=== PATIENT | female | born 1945 | race Caucasian/White ===

== ENCOUNTER → 2016-06-16 09:31 | Outpatient (CLI) | payer MEDICARE, OTHER ==
[2010-12-24 18:14] VITALS: BMI 31.3
== END | disposition home or self-care (01) ==
LOC: D.NM 09:31
DX: R93.8 Abnormal findings on diagnostic imaging of other specified body structures (principal)

== ENCOUNTER → 2016-06-18 12:11 | Outpatient (CLI) | payer MEDICARE, OTHER ==
[2010-12-24 18:14] VITALS: BMI 31.3
== END | disposition home or self-care (01) ==
LOC: D.US 12:11
DX: R93.8 Abnormal findings on diagnostic imaging of other specified body structures (principal)

== ENCOUNTER 2017-02-04 16:08 | Inpatient (IN) | payer MEDICARE, OTHER ==
[~2017-02-04] VITALS: Ht 157.5 cm; Wt 63.3 kg
--- NOTE | 2017-02-04 16:25 | NUR ---
RECEIVED PT TO ROOM 2131 VIA WHEELCHAIR, ACCOMPANIED BY SPOUSE. ORIENTED PT TO ROOM AND CALL LIGHT,WILL ASSESS PT AND START PLAN OF CARE.
[2017-02-04] MEDS ORDERED: SYNTHROID112 MCG PO (16:53)
[2017-02-04] MEDS ORDERED: XALATAN 0.0052.5 ML EACH EYE (16:53)
[2017-02-04] MEDS ORDERED: PROTONIX40 MG PO (16:54)
[2017-02-04] MEDS ORDERED: ULTRAM50 MG PO (16:54)
[2017-02-04] MEDS ORDERED: CYMBALTA30 MG PO (16:54)
[2017-02-04] MEDS ORDERED: CADUET 10 MG/801 TAB PO (16:55)
[2017-02-04] MEDS ORDERED: FOLIC ACID1 MG PO (16:57)
[2017-02-04] MEDS ORDERED: CLARITIN 10 MG10 MG PO (16:58)
[2017-02-04] MEDS ORDERED: ALIGN4 MG PO (16:58)
[2017-02-04] MEDS ORDERED: MULTIPLE VITAMI1 TA1 PO (16:58)
[2017-02-04] MEDS ORDERED: ASCORBIC ACID500 MG PO (16:58)
[2017-02-04] MEDS ORDERED: VITAMIN B-121000 MCG PO (16:59)
--- NOTE | 2017-02-04 17:00 | NUR ---
RATIONAL FOR SCD'S EXPLAINED TO PT. PT REFUSED TO WEAR SCD'S AT THIS TIME, WILL LEAVE IN ROOM TO SEE IF SHE WOULD LIKE TO WEAR THEM TONIGHT.
[2017-02-04 17:36] LABS: BASOPHILS 0.1 % (0-2); EOSINOPHILS 0.2 % (0-7); HEMATOCRIT 37.3 % (36.0-48.0); HEMOGLOBIN 12.6 g/dL (12-16); IMMATURE GRANULOCYTES 0.2 % (0-5); LYMPHOCYTES 7.5 % (15-50); MCHC 33.8 g/dL (31.0-37.0); MCV 85.9 fL (80.0-100.0); MEAN PLATELET VOLUME 9.4 fL (7.4-10.4); MONOCYTES 7.1 % (2-11); NEUTROPHILS 84.9 % (40-80); RBC 4.34 10x6/uL (4.00-5.40); RDW 14.4 % (11.5-14.5); WBC 14.7 10x3/uL (4.8-10.8)
[2017-02-04 17:42] LABS: PLATELET COUNT 572 10x3/uL (130-400)
[2017-02-04 17:50] VITALS: BP 131/84
[2017-02-04 17:56] LABS: ALBUMIN 2.8 g/dL (3.4-5.0); ANION GAP 11.4 mmol/L (8-16); BILIRUBIN - TOTAL 0.3 mg/dL (0.2-1.3); CALCIUM 10.7 mg/dL (8.5-10.1); CARBON DIOXIDE 29.1 mmol/L (21.0-32.0); POTASSIUM - SERUM 4.5 mmol/L (3.5-5.1); PROTEIN - SERUM 6.3 g/dL (6.4-8.2)
--- NOTE | 2017-02-04 20:42 | NUR ---
PT TAKEN TO CT SCAN
--- NOTE | 2017-02-04 20:43 | NUR ---
PT'S STATED THAT HE BROUGHT HIS WIFES EYE GTTS FOR CATARACTS AND ASKED IF HE COULD ADMINISTER THEM BEFORE HE LEAVES. I DID GIVE HIM THE AUTHORIZATION TO DO SO. HE STATES PT HAS BEEN N/V X 4 WEEKS, HAS DIFFICULTY SWALLOWING, AND HAS BECOME VERY DEHYDRATED. WILL CONTINUE TO MONTITOR PT CLOSELY AND FREQUENTLY.
[2017-02-04 21:22] LABS: APPEARANCE CLEAR (CLEAR); BILIRUBIN NEGATIVE (NEGATIVE); COLOR YELLOW (YELLOW); GLUCOSE NEGATIVE (NEGATIVE); KETONE SMALL mg/dL (NEGATIVE); NITRITE NEGATIVE (NEGATIVE); PROTEIN NEGATIVE (NEGATIVE); SPECIFIC GRAVITY 1.015 (1.005-1.020); UROBILINOGEN NORMAL (NORMAL)
[2017-02-04 21:56] VITALS: BP 145/77
--- NOTE | 2017-02-05 02:02 | NUR ---
PT HAS BEEN RESTING COMFORTABLY SINCE START OF SHIFT, EASILY ROUSABLE TO VERBAL STIMULI, DENIES ANY NEEDS. WILL CONTINUE TO MONITOR CLOSELY.
[2017-02-05 06:09] VITALS: BP 133/71
--- NOTE | 2017-02-05 06:41 | NUR ---
PT LYING IN BED, AWAKE, ALERT, C/O NAUSEA AND STATES SHE IS RELUCTANT ABOUT HAVING THE EGD THIS MORNING R/T HER NAUSEA. PRN ZOFRAN GIVEN EVEN THOUGH PT STATES IT HAS NOT HELPED HER BEFORE. NO OTHER NEEDS AT THIS TIME. CONTINUE TO MONITOR CLOSELY.
[2017-02-05 06:45] LABS: BASOPHILS 0.1 % (0-2); EOSINOPHILS 1.5 % (0-7); HEMATOCRIT 36.8 % (36.0-48.0); HEMOGLOBIN 12.3 g/dL (12-16); IMMATURE GRANULOCYTES 0.1 % (0-5); LYMPHOCYTES 8.8 % (15-50); MCH 28.8 pg (26.0-34.0); MCHC 33.4 g/dL (31.0-37.0); MCV 86.2 fL (80.0-100.0); MEAN PLATELET VOLUME 9.6 fL (7.4-10.4); MONOCYTES 7.6 % (2-11); NEUTROPHILS 81.9 % (40-80); PLATELET COUNT 536 10x3/uL (130-400); RBC 4.27 10x6/uL (4.00-5.40); RDW 14.6 % (11.5-14.5); WBC 13.6 10x3/uL (4.8-10.8)
[2017-02-05 07:12] LABS: ALBUMIN 2.5 g/dL (3.4-5.0); ANION GAP 9.7 mmol/L (8-16); BILIRUBIN - TOTAL 0.4 mg/dL (0.2-1.3); CALCIUM 10.3 mg/dL (8.5-10.1); CARBON DIOXIDE 29.2 mmol/L (21.0-32.0); CREATININE - SERUM 0.9 mg/dL (0.6-1.3); POTASSIUM - SERUM 3.9 mmol/L (3.5-5.1); PROTEIN - SERUM 6.2 g/dL (6.4-8.2)
--- NOTE | 2017-02-05 07:16 | NUR ---
PT IN BED, LOOKES ANXIOUS AND TEARY EYE, STATES THAT SHE IS VERY NAUSEATED AND DOES NOT WANT TO HAVE THE EGD DONE. DOES NOT WANT TO SIGN CONSENTS, UNTIL SEE SPEAKS WITH DR. FRANKEL. WILL CALL DR. FRANKEL AND INFORM HER THAT PT WANTS TO TALK TO HER FIRST. PT DENIES ANY OTHER NEEDS AT THIS TIME, RESP EVEN AND UNLABORED, RT FA INFUSING NS AT 125. CALL LIGHT INR EACH, NAD NOTED, WILL CONTINUE PLAN OF CARE.
--- NOTE | 2017-02-05 08:02 | NUR ---
CALLED THE GI LAB AND NOTIFIED THEM THAT PT IS REFUSING TO SIGN CONSENTS FOR EGD TODAY. WANTS DR. FRANKEL TO COME AND TALK TO HER FIRST.
[2017-02-05 08:43] VITALS: BP 161/71
[2017-02-05 11:14] LABS: INR 1.05 (0.85-1.17); PROTIME 13.3 SECONDS (11.6-15.0)
--- NOTE | 2017-02-05 11:48 | NUR ---
PT TRANSFERED TO RADIOLOGY, VIA BED, NAD NOTED.
--- NOTE | 2017-02-05 12:30 | NUR ---
PT TRANSFERED BACK TO ROOM 2131 VIA BED, VITAL SIGNS STABLE, DRESSING NOTED TO RT UPPER BACK. PT DENIES ANY NEEDS AT THIS TIME. CALL LIGHT IN REACH, NAD NOTED, WILL CONTINUE TO MONITOR.
[2017-02-05 13:10] VITALS: BMI 23.9
[2017-02-05 13:31] LABS: PROTEIN - BODY FLUID 3.8 G/DL
[2017-02-05 14:44] LABS: MACROPHAGES BF 5 %; MESOTHELIALS BF 1 %; NEUT - BF 24 %
--- NOTE | 2017-02-05 16:13 | NUR ---
NORCO 5MG GIVEN FOR PAIN LEVEL OF 5/10. PT DENIES ANY OTHER NEEDS AT THIS TIME. CALL LIGHT IN REACH, PARTNER AT BEDSIDE, NAD NOTED, WILL CONTINUE PLAN OF CARE.
[2017-02-05 17:17] VITALS: BP 147/75
--- NOTE | 2017-02-05 18:46 | NUR ---
PT'S IV INFILTRATED, NEW 22G STARTED TO RT FA X2 STICKS. PT TOLERATED PROCEDURE WELL. IVPB FLAGYL STARTED BACK UP, PT DENIES ANY NEEDS AT THIS TIME. FAMILY AT BEDSIDE, CALL LIGHT IN REACH, NAD NOTED.
--- NOTE | 2017-02-05 19:15 | NUR ---
ROOSEVELT NOTE: PT IS A,A,OX3, PT IS VERY ANXIOUS AND NERVOUS. SHE UNDERWENT A RIGHT THORACENTESIS TODAY AND HAD 1700CC OF FLUID REMOVED. SHE IS HAVING SIGNIFICANT PAIN AT HER THORACENTESIS SITE AND IS REQUESTING PAIN MEDS, BUT HER NORCO IS NOT DUE YET; HOWEVER, SHE COULD HAVE HER TRAMADOL, SO THAT WILL BE GIVEN PER REQUEST. SHE IS CONCERNED ABOUT BEING TOO DIZZY TO WALK TO THE BATHROOM, I ENCOURAGED HER TO MAKE SURE SHE USES HER CALL UREÑA TO ASK FOR ASSIST TO GET UP TO THE BATHROOM. PT DENIES ANY RESPIRATORY COMPLAINTS AT THIS TIME. RIGHT FOREARM IV ACCESS W/ D5 1/2NS @ 75CC/HR. DRESSING TO RIGHT BACK, 4X4 W/ TEGADERM C/D/I (THORACENTESIS SITE). WILL CONT TO MONITOR.
[2017-02-05 22:00] VITALS: BP 125/58
[2017-02-06 00:36] VITALS: BP 126/74
[2017-02-06 05:11] VITALS: BP 114/79
--- NOTE | 2017-02-06 05:35 | NUR ---
PT HAS SLEPT THROUGH MOST OF THE NIGHT. SHE HAS BEEN MEDICATED FOR PAIN PER REQUEST, PER MD ORDERS, WITH GOOD RELIEF. PT HAS NOT HAD A BOWEL MOVEMENT, SO COULD NOT COLLECT A STOOL SPECIMEN FOR A CDIFF CULTURE. PT STATES THAT SHE HAS BEEN CONSTIPATED FOR 1 WEEK. SHE DENIES ANY DIARRHEA. PT HAS QUESTIONS ABOUT MRI OF BRAIN AND BONESCAN. SHE WANTS TO BE D/C'D TODAY. I EXPLAINED THAT IT WOUDL BE BETTER TO HAVE THE TESTING ORDERED BY THE MD FOR HER WORK-UP PRIOR TO D/C SO SHE COULD HAVE MORE ANSWERS AND A MORE DEFINITIVE DIAGNOSIS. AFTER TALKING AND FURTHER REASSURANCE, PT AGREES. PT IS STABLE, RESTING COMFORTABLY, DENIES ANY CURRENT COMPLAINTS. WILL CONT TO MONITOR.
--- NOTE | 2017-02-06 05:40 | NUR ---
PT STATES THAT SHE GETS BETTER PAIN RELIEF FROM THE TRAMADOL THAN THE NORCO. THE NORCO JUST GIVES HER A HEADACHE.
[2017-02-06 07:02] LABS: BASOPHILS 0.3 % (0-2); EOSINOPHILS 2.4 % (0-7); HEMATOCRIT 34.4 % (36.0-48.0); HEMOGLOBIN 11.3 g/dL (12-16); IMMATURE GRANULOCYTES 0.2 % (0-5); LYMPHOCYTES 8.5 % (15-50); MCH 28.3 pg (26.0-34.0); MCHC 32.8 g/dL (31.0-37.0); MEAN PLATELET VOLUME 9.3 fL (7.4-10.4); NEUTROPHILS 79.6 % (40-80); PLATELET COUNT 436 10x3/uL (130-400); RDW 14.4 % (11.5-14.5); WBC 10.5 10x3/uL (4.8-10.8)
[2017-02-06 07:16] LABS: ANION GAP 10.8 mmol/L (8-16); CALCIUM 9.7 mg/dL (8.5-10.1); CARBON DIOXIDE 26.1 mmol/L (21.0-32.0); CREATININE - SERUM 0.9 mg/dL (0.6-1.3); POTASSIUM - SERUM 3.9 mmol/L (3.5-5.1)
--- NOTE | 2017-02-06 07:35 | NUR ---
ASSESSMENT COMPLETED. ALERT AND ORIENTED. NO TELEMERTY OR O2. RESERVE RIGHT ARM. DRSG TO BACK CLEAN AND DRY. IV TO RIGHT FOREARM WITH D5I/2 NS AT 75. NO NEEDS VOICED. CALL LIGHT IN REACH WITH SR UP. WILL MONITOR
[2017-02-06 09:19] VITALS: BP 132/79
--- NOTE | 2017-02-06 11:50 | NUR ---
CALL PLACED TO JESICA CALI. PT C/O NOT GETTING HER CYMBALTA.
[2017-02-06 12:08] VITALS: BP 127/71
[2017-02-06 15:39] VITALS: Ht 157.5 cm; Wt 63.3 kg
[2017-02-06 17:07] VITALS: BP 123/68
--- NOTE | 2017-02-06 18:30 | NUR ---
BACK FROM CT. DENIES ANY NEEDS. IV RESTARTED. WILL MONITOR
[2017-02-06 19:08] LABS: AFB SPECIMEN PROCESSING Not Indicated (())
[2017-02-06 21:08] VITALS: BP 125/65
[2017-02-07 01:27] VITALS: BP 107/63
[2017-02-07 06:24] LABS: BASOPHILS 0.1 % (0-2); EOSINOPHILS 1.9 % (0-7); HEMATOCRIT 33.9 % (36.0-48.0); HEMOGLOBIN 11.1 g/dL (12-16); IMMATURE GRANULOCYTES 0.1 % (0-5); LYMPHOCYTES 8.5 % (15-50); MCH 28.2 pg (26.0-34.0); MCHC 32.7 g/dL (31.0-37.0); MEAN PLATELET VOLUME 9.3 fL (7.4-10.4); MONOCYTES 9.2 % (2-11); NEUTROPHILS 80.2 % (40-80); PLATELET COUNT 390 10x3/uL (130-400); RBC 3.94 10x6/uL (4.00-5.40); RDW 14.5 % (11.5-14.5); WBC 9.6 10x3/uL (4.8-10.8)
[2017-02-07 06:51] VITALS: BP 106/42
[2017-02-07 07:08] LABS: ALBUMIN 2.1 g/dL (3.4-5.0); ANION GAP 11.7 mmol/L (8-16); BILIRUBIN - TOTAL 0.3 mg/dL (0.2-1.3); CALCIUM 9.7 mg/dL (8.5-10.1); CARBON DIOXIDE 27.1 mmol/L (21.0-32.0); CREATININE - SERUM 0.9 mg/dL (0.6-1.3); POTASSIUM - SERUM 3.8 mmol/L (3.5-5.1); PROTEIN - SERUM 5.3 g/dL (6.4-8.2)
--- NOTE | 2017-02-07 07:37 | NUR ---
PT IN BED RESTING WITH EYES CLOSED. NO DISTRESS NOTED. WILL MONITOR.
[2017-02-07 08:24] VITALS: BP 106/74
--- NOTE | 2017-02-07 10:15 | NUR ---
IV INFILTARTED ON LEFT ARM WAS LEAKING. REMOVED IV WITH CATH INTACT. RESARTED TO LEFT UPPER ARM X 1 ATTEMPT WITH 22GA. CONT IV FLUIDS. PT UP TO BATHROOM FOR POSSIBLE BM.
[2017-02-07 17:02] VITALS: BP 106/62
--- NOTE | 2017-02-07 19:45 | NUR ---
INITIAL ROUNDS, PT TEARFUL. UPSET THAT SHE CANNOT DIAL OUT ON THE PHONE. ASSISTED PT TO CALL ON THE PHONE. ENCOURAGED TO VERBAIZED HER FEELINGS/NEEDS. SHE IS UNDER ALOT OF STRESS WITH THE POSSIBLE PENDING DIAGNOSIS OF LUNG CANCER. SHE SAYS SHE ONLY HAS A SISTER. NO OR CHILDREN. VERY DESPONDENT. GAVE POSITIVE FEEDBACK AND ENCOURAGED PT TO LET ALL THE MDS DEVELOP A PLAN OF CARE. IVF D5.45NS @ 75ML/HR INFUSING. LEFT ARM RESERVEDD. NO O2 OR TELEMETRY IN PLACE. CPOC. PROVIDE EMOTIONAL SUPPORT.
[2017-02-07 21:07] VITALS: BP 108/57
--- NOTE | 2017-02-07 21:10 | NUR ---
DR RESENDEZ ROUNDING ON PATIENT.
[2017-02-08 00:58] VITALS: BP 119/64
[2017-02-08 05:19] VITALS: BP 109/70
[2017-02-08 05:43] LABS: BASOPHILS 0.2 % (0-2); EOSINOPHILS 1.8 % (0-7); HEMATOCRIT 32.8 % (36.0-48.0); HEMOGLOBIN 10.9 g/dL (12-16); IMMATURE GRANULOCYTES 0.2 % (0-5); LYMPHOCYTES 3.8 % (15-50); MCH 28.4 pg (26.0-34.0); MCHC 33.2 g/dL (31.0-37.0); MCV 85.4 fL (80.0-100.0); MEAN PLATELET VOLUME 9.7 fL (7.4-10.4); PLATELET COUNT 425 10x3/uL (130-400); RBC 3.84 10x6/uL (4.00-5.40); RDW 14.4 % (11.5-14.5); WBC 10.3 10x3/uL (4.8-10.8)
[2017-02-08 06:32] LABS: ALBUMIN 2.2 g/dL (3.4-5.0); ANION GAP 14.9 mmol/L (8-16); BILIRUBIN - TOTAL 0.3 mg/dL (0.2-1.3); CALCIUM 10.1 mg/dL (8.5-10.1); CARBON DIOXIDE 22.7 mmol/L (21.0-32.0); POTASSIUM - SERUM 3.6 mmol/L (3.5-5.1); PROTEIN - SERUM 5.6 g/dL (6.4-8.2)
--- NOTE | 2017-02-08 07:37 | NUR ---
PATIENT IS IN BED RESTING AT THIS TIME. PATIENT STATES PAIN LEVEL IS A 4 ON A SCALE OF 0-10 HOWEVER STATES "I DO NOT WANT PAIN MEDICINE RIGHT NOW." PATIENT REPOSITIONED FOR COMFORT. NO SIGNS OR SYMPTOMS OF DISTRESS NOTED AT THIS TIME. CALL LIGHT AND WATER WITHIN REACH. RESPIRATIONS EQUAL AND NON LABOERED.
[2017-02-08 08:02] VITALS: BP 123/66
--- NOTE | 2017-02-08 09:59 | NUR ---
IV INTACT. CALL LIGHT IN REACH. WILL CONT. PLAN OF CARE.
[2017-02-08 10:11] LABS: FUNGUS STAIN Final report (())
[2017-02-08 13:05] VITALS: BP 124/63
[2017-02-08 16:31] VITALS: BP 112/67
--- NOTE | 2017-02-08 18:46 | NUR ---
PATIENT IN BED WATCHING TELEVISION AT THIS TIME. FAMILY IS AT BEDSIDE. NO PROBLEMS ARE NOTED AT THIS TIME. NO REPORTS OF PAIN AND NO SIGNS OR SYMPTOMS OF DISTRESS NOTED. CALL LIGHT AND WATER ARE WITHIN REACH.
[2017-02-08 19:00] VITALS: BP 153/63
--- NOTE | 2017-02-08 19:45 | NUR ---
PT ON PHONE. PT HAS D5 1/2NS INFUSING TO RIGHT AC. PT DENIES ANY NEEDS. NO S/S OF DISTRESS. BED LOW AND CALL LIGHT IN REACH. WILL CPOC
[2017-02-09 04:00] VITALS: BP 119/79
[2017-02-09 06:06] LABS: BASOPHILS 0.2 % (0-2); EOSINOPHILS 2.6 % (0-7); HEMATOCRIT 32.5 % (36.0-48.0); IMMATURE GRANULOCYTES 0.3 % (0-5); LYMPHOCYTES 8.3 % (15-50); MCH 28.8 pg (26.0-34.0); MCHC 33.8 g/dL (31.0-37.0); MCV 85.1 fL (80.0-100.0); MEAN PLATELET VOLUME 9.3 fL (7.4-10.4); NEUTROPHILS 79.6 % (40-80); PLATELET COUNT 397 10x3/uL (130-400); RBC 3.82 10x6/uL (4.00-5.40); RDW 14.6 % (11.5-14.5); WBC 9.7 10x3/uL (4.8-10.8)
[2017-02-09 06:28] LABS: ALBUMIN 2.1 g/dL (3.4-5.0); ANION GAP 12.4 mmol/L (8-16); BILIRUBIN - TOTAL 0.3 mg/dL (0.2-1.3); CALCIUM 9.7 mg/dL (8.5-10.1); CARBON DIOXIDE 23.2 mmol/L (21.0-32.0); POTASSIUM - SERUM 3.6 mmol/L (3.5-5.1); PROTEIN - SERUM 5.4 g/dL (6.4-8.2)
--- NOTE | 2017-02-09 07:50 | NUR ---
PATIENT IN BED RESTING AT THIS TIME. PATIENT REQUESTED OATMEAL AND TOAST INSTEAD OF FOOD RECEIVED FROM DIETARY. REQUEST CALLED TO DIETARY AT THIS TIME. NO PROBLEMS TO NOTE. NO COMPLAINTS OF PAIN OR DISCOMFORT AND NO SIGNS OR SYMPTOMS OF DISTRESS ARE NOTED AT THIS TIME.
[2017-02-09 08:52] VITALS: BP 146/75
--- NOTE | 2017-02-09 09:40 | NUR ---
RESTS WITH EYES CLOSED. IV PATENT. CALL LIGHT IN REACH. WILL CONT. PLAN OF CARE.
[2017-02-09 12:12] VITALS: BP 119/63
--- NOTE | 2017-02-09 13:26 | NUR ---
Nutrition Follow Up: Pt is eating 75% meal avg on a regular soft diet. Per chart pt does not want barium esophagram, etc and refuses pureed/full liquid diet. No BM since admit. Wt stable. Labs reviewed. Meds noted including Flagyl. Rec continue current diet as tolerated. RD following.
[2017-02-09 16:11] VITALS: BP 103/62
--- NOTE | 2017-02-09 19:42 | NUR ---
PT IN BED RESTING QUIETLY. C/O PAIN, REQUESTED TRAMADOL. TOLD PT IT IS SCHEDULED FOR TONIGHT AND I WILL BRING IT SOON POSSIBLE. PT STATED UNDERSTANDING. BED IN LOW POSITION, CALL LIGHT WITHIN REACH. WILL CTM.
[2017-02-09 20:23] VITALS: BP 101/57
[2017-02-10] VITALS: BP 110/68; BP 144/59
--- NOTE | 2017-02-10 02:03 | NUR ---
PT REFUSED HER IV ABX TONIGHT SCHEDULED FOR 0200 AND 0300. SHE STATED SHE BELIEVES THEY ARE MAKER HER "SICKER" AND WANTS TO "TALK WITH THE DOCTOR ABOUT DOING SOMETHING ELSE" BECAUSE SHE "CANT TAKE IT."
--- NOTE | 2017-02-10 02:25 | NUR ---
CONSENTS FOR LYMPH NODE BIOPSY ALL SIGNED AND IN FRONT OF CHART.
[2017-02-10 04:00] VITALS: BP 111/64
[2017-02-10 05:19] LABS: BASOPHILS 0.2 % (0-2); EOSINOPHILS 1.6 % (0-7); HEMATOCRIT 30.1 % (36.0-48.0); HEMOGLOBIN 10.1 g/dL (12-16); IMMATURE GRANULOCYTES 0.3 % (0-5); MCH 28.5 pg (26.0-34.0); MCHC 33.6 g/dL (31.0-37.0); MCV 84.8 fL (80.0-100.0); MEAN PLATELET VOLUME 9.9 fL (7.4-10.4); MONOCYTES 10.7 % (2-11); NEUTROPHILS 78.2 % (40-80); PLATELET COUNT 391 10x3/uL (130-400); RBC 3.55 10x6/uL (4.00-5.40); RDW 14.6 % (11.5-14.5); WBC 10.9 10x3/uL (4.8-10.8)
[2017-02-10 05:46] LABS: ALBUMIN 2.1 g/dL (3.4-5.0); ALKALINE PHOSPHATASE 76 U/L (46-116); ALT (SGPT) 28 U/L (10-68); BILIRUBIN - TOTAL 0.28 mg/dL (0.2-1.3); CALC OSMOLALITY 262 mosm/kg (275-300); CALCIUM 9.4 mg/dL (8.5-10.1); CHLORIDE - SERUM 98 mmol/L (98-107); GLUCOSE 131 mg/dL (74-106); PROTEIN - SERUM 4.9 g/dL (6.4-8.2); SODIUM 131 mmol/L (136-145); UREA NITROGEN 6 mg/dL (7-18)
[2017-02-10 05:47] LABS: CREATININE - SERUM 0.6 mg/dL (0.6-1.3); POTASSIUM - SERUM 4.3 mmol/L (3.5-5.1); eGFR NON AFRICAN AMERICAN > 90 mL/min (90-120)
--- NOTE | 2017-02-10 07:54 | NUR ---
PATIENT STATES THAT SHE DOES NOT WANT TO TAKE HER MORNING BREATHING TREATEMENT. SHE SAYS LAST NIGHT SHE COUGHED AND VOMITTED FOAM FOLLOWING TREATEMNT. I EDUCATED AND ADVISED PATIENT TO FOLLOW DR. COOK ORDERS RE BREATHING TREATMENT. PATIENT WOULD LIKE TO SPEAK TO HIM TO WHY THEY ARE STILL INDICATED. PATIENT LUNGS MOSTLY CLEAR, MORE DIMINISHED ON RIGHT. NON PRODUCTIVE COUGH AT THIS TIME. SP02 92% ON ROOM AIR. PATIENT STATES TREATMENTS ARE MAKING HER 02 LEVEL GO DOWN. WILL CONT. TO MONITOR.
[2017-02-10 08:00] VITALS: BP 131/68
--- NOTE | 2017-02-10 09:41 | NUR ---
PATIENT IS "FRUSTRATED" BECAUSE WE "KEEP FINDING SOMETHING WRONG" AND SHE IS "NEVER GOING TO GET TO GO HOME". STATES SHE WAS NEVER TOLD SHE HAD CDIFF AND WANTED TO KNOW WHY I WAS WEARING A GOWN OVER MY SCRUBS. ALL QUESTIONS ANSWERED, BUT PATIENT IS VERY UNHAPPY.
--- NOTE | 2017-02-10 12:05 | NUR ---
COMPLAINING OF NAUSEA. ZOFRAN 4MG IV GIVEN PER ORDERS. PO MEDS HELD FOR NOW. WILL CONT TO MONITOR.
--- NOTE | 2017-02-10 12:05 | NUR ---
PT STILL REFUSING BREATHING TREATMENTS, SEE PREVIOUS NOTE.
[2017-02-10 13:16] VITALS: BP 124/73
--- NOTE | 2017-02-10 13:21 | NUR ---
PATIENT LAYING IN BED, TALKING ON THE PHONE. SHE CURRENTLY HAS NOTHING GOING TO HER IV. EVERYTHING HAS BEEN DISCONNECTED. WHEN ASKED WHY, SHE STATES "MY IV IS BAD". I REMOVED THE TAPE AND ASSESSED THE IV SITE. THE IV FLUSHES WELL, THERE IS NOT REDNESS OR HARDNESS AT SITE. I REDRESSED IV AND STARTED PATIENT BACK ON NS @ 150ML, CONTINUED HER PROTONIX, AND CONTINUED INFUSING THE FLAGYL THAT IS HANGING.
--- NOTE | 2017-02-10 13:34 | NUR ---
RESTS IN ISOLATION ROOM. VIR[place]IE AT BS. CALL LIGHT IN REACH. WILL CONT. PLAN OF CARE.
--- NOTE | 2017-02-10 14:49 | NUR ---
PATIENT RESTING AT THIS TIME, NAD NOTED. NEEDS MET AT THIS TIME. CPOC
--- NOTE | 2017-02-10 16:11 | NUR ---
PREOP MEDS GIVEN. ALL QUESTIONS ANSWERED. PATIENT TRANSPORTED TO SURGERY VIA STRETCHER BY SURGERY STAFF MEMBER.
--- NOTE | 2017-02-10 16:17 | NUR ---
Patient Name: JEIMY RIVERO Admission Status: Urgent Accout number: [id number] Admission Date: 02-04-2017 : 1945 Admission Diagnosis:DYSPHAGIA, UNSPECIFIED Attending: JUAN MINAYA Current LOS: 6 Anticipated DC Date: 02-11-2017 Planned Disposition: Home with Home Health Primary Insurance: MEDICARE A & B PLANNED EXTERNAL PROVIDER: [facility] Discharge Planning Comments: * Is the patient Alert and Oriented? Yes 0 * How many steps to enter\exit or inside your home? NONE 0 * PCP DR. MINAYA 0 * [facility] [address] [facility] 02-22-17 0 * Preadmission Environment Home with Family 0 * ADLs Independent 0 * Equipment Cane Rolling Walker Shower Chair Walker 0 * Other Equipment [facility] - MEDICAL EQUIPMENT PROVIDER 0 * List name and contact numbers for known caregivers / representatives who currently or will assist patient after discharge: CARRIE JUAREZ, SIGNIFICANT OTHER, 0 * Community resources currently utilized None 0 * Please name any agencies selected above. NONE 0 * Additional services required to return to the preadmission environment? No 0 * Can the patient safely return to the preadmission environment? Yes 0 * Has this patient been hospitalized within the prior 30 days at any hospital? No 0 CM RECEIVED ORDER FOR HOME HEALTH AND NEBULIZER. CM MET WITH PT AND SIGNIFICANT OTHER IN ROOM TO DISCUSS DISCHARGE PLANNING AND NEEDS. PT REPORTS LIVING AT HOME INDEPENDENTLY WITH HER SIGNIFICANT OTHER. PT HAS TWO WALKERS, A CANE AND SHOWER CHAIR PROVIDED BY [facility]. PT HAS NO OUTSIDE SERVICES ASSISTING IN THE HOME. CM DISCUSSED AVAILABILITY OF HOME HEALTH, REHAB SERVICES AND MEDICAL EQUIPMENT. PT WOULD LIKE HOME HEALTH WITH [facility], CHOICE SIGNED, WANTS HOME DELIVERY OF NEBULIZER FROM [facility]. PT'S SIGNIFICANT OTHER WILL PICK HER UP FOR DISCHARGE HOME. IMPORTANT MESSAGE FROM MEDICARE PROVIDED AND EXPLAINED. CM CALLED [facility], , SPOKE TO BITA AND PROVIDED REFERRAL AND ORDER VIA FAX AT [phone]. [facility] TO ACCEPT FOR HOME HEALTH SERVICES. CM CALLED [facility], , SPOKE TO ELIE, REFERRAL ACCEPTED FOR HOME DELIVERY OF NEBULIZER, CM FAXED REFERRAL AND ORDER TO [facility] AT [phone]. [facility] TO ARRANGE HOME DELIVERY OF NEBLUIZER WITH PT. FOR HOME HEALTH AT DISCHARGE, FAX DISCHARGE INFORMATION TO [facility] AT [phone]; NOTIFY [facility] AT [phone]. Die Finisher Forging: Gallo Gee
--- NOTE | 2017-02-10 18:27 | NUR ---
EVENING ROUNDS MADE. PATIENT HAS NOT RETURNED FROM SURGERY.
--- NOTE | 2017-02-10 18:44 | NUR ---
PATIENT HAS STATED PAIN 5/10, REFUSING PAIN MEDICATION
--- NOTE | 2017-02-10 18:51 | NUR ---
PATIENT HAD IV IN LEFT AC THAT INFILTRATED. I ATTEMPTED 3 TIMES TO START IV IN BOTH ARMS, BUT FAILED. CALLED CAROL PINTO TO START IV AND IT WAS STARTED ON FIRST ATTEMPT. PATIENT IS CONCERNED ABOUT HER K LEVEL, C/O CRAMPING IN BOTH LEGS AND HANDS. K GIVEN PER ELECTROLYTE PROTOCOL. EVENING ROUNDS MADE. DENIES ANY NEEDS AT THIS TIME. BED IN LOWEST POSITION, CL IN REACH, SR UP X2. CPOC.
--- NOTE | 2017-02-10 18:55 | NUR ---
RECEIVED REPORT FROM [facility]. PATIENT HAD RIGHT NECK SENTINAL NODE BIOPSY X2. SHE HAS A 4X4 BANDAGE TO HER RIGHT NECK, SWELLING NOTED, BUT DRESSING IS CLEAN AND DRY. PT STATES SHE FEELS LIKE SHE CAN'T GET A DEEP BREATH. 98% ON 2L, VS WNL. C/O PAIN, "5" ON 0-10 SCALE, BUT DOESN'T WANT ANYTHING FOR PAIN AT THIS TIME. THERE IS A SMALL SKIN TEAR AT HER IV BANDAGE.
--- NOTE | 2017-02-10 20:30 | NUR ---
PT IN BED RESTING QUIETLY. BREATHING EVEN AND UNLABORED. BED IN LOW POSITION, CALL LIGHT WITHIN REACH. WILL CTM.
--- NOTE | 2017-02-10 23:06 | NUR ---
PTS IV INFILTRATED. RESITED TO RIGHT UPPER ARM, 22G, ONE ATTEMPT.
[2017-02-11] VITALS: BP 123/58
--- NOTE | 2017-02-11 01:12 | NUR ---
PT C/O DRY MOUTH/THROAT. ORAL CARE MOUTH SWABS GIVEN TO PT AND EDUCATION DONE ON HOW TO USE THEM. DENIES ANY OTHER NEEDS AT THIS TIME. WILL CTM.
[2017-02-11 05:07] LABS: BASOPHILS 0.2 % (0-2); EOSINOPHILS 0.2 % (0-7); HEMATOCRIT 30.5 % (36.0-48.0); HEMOGLOBIN 10.3 g/dL (12-16); IMMATURE GRANULOCYTES 0.2 % (0-5); LYMPHOCYTES 2.6 % (15-50); MCH 28.5 pg (26.0-34.0); MCHC 33.8 g/dL (31.0-37.0); MCV 84.5 fL (80.0-100.0); MEAN PLATELET VOLUME 9.8 fL (7.4-10.4); MONOCYTES 10.9 % (2-11); NEUTROPHILS 85.9 % (40-80); PLATELET COUNT 411 10x3/uL (130-400); RBC 3.61 10x6/uL (4.00-5.40); RDW 14.5 % (11.5-14.5); WBC 12.5 10x3/uL (4.8-10.8)
[2017-02-11 05:24] LABS: ALBUMIN 2.1 g/dL (3.4-5.0); ANION GAP 9.3 mmol/L (8-16); BILIRUBIN - TOTAL 0.22 mg/dL (0.2-1.3); CALCIUM 9.9 mg/dL (8.5-10.1); CARBON DIOXIDE 27.7 mmol/L (21.0-32.0); PROTEIN - SERUM 5.3 g/dL (6.4-8.2)
[2017-02-11 05:37] LABS: CREATININE - SERUM 1.1 mg/dL (0.6-1.3)
--- NOTE | 2017-02-11 07:30 | NUR ---
ASSSSMENT COMPLETED. 02 AT 2 L/M PER NC.UPPER RIGHT ARM WITH D51/2AT 5O. UP AB KAYLEE. ON CONTACT ISOLATION.NO NEEDS VOICED. WILL MONITOR.
--- NOTE | 2017-02-11 08:50 | NUR ---
RESTS IN ISOLATION ROOM. IV PATENT. CALL LIGHT IN REACH. WILL CONT. PLAN OF CARE.
[2017-02-11 08:51] VITALS: BP 137/77
[2017-02-11 12:30] VITALS: BP 125/72
--- NOTE | 2017-02-11 18:40 | NUR ---
LYING QUIETLY. FAMILY AT BEDSIDE. WILL MONITOR
--- NOTE | 2017-02-11 19:42 | NUR ---
PT IN BED DENIES NEEDS AT THIS TIME.
[2017-02-11 20:00] VITALS: BP 98/62
[2017-02-12] VITALS: BP 122/62
[2017-02-12 04:00] VITALS: BP 116/71
--- NOTE | 2017-02-12 05:05 | NUR ---
QA LEAD AT BEDSIDE, CALL LIGHT IN REACH. WILL CONTINUE WITH PLAN OF CARE.
[2017-02-12 08:32] VITALS: BP 131/68
--- NOTE | 2017-02-12 11:48 | NUR ---
Nutrition follow-up: Diet: Very soft regular PO Intake ~75% average of meals Labs reviewed +BM; pt had been constipated Wt: 139# -> up from admit wt Will continue to provide food choices with selective menus and honor food preferences. RDN following.
[2017-02-12 12:05] VITALS: BP 142/73
--- NOTE | 2017-02-12 16:53 | NUR ---
Patient Name: JEIMY RIVERO Encounter No: [id number] : 1945 Primary Insurance: MEDICARE A & B Anticipated DC Date: 02-11-2017 Planned Disposition: Home with Home Health External Planned Provider: [facility] DCP follow-up note: CM RECEIVED CALL FROM [facility], PT TAKEN OFF ADMIT SCHEDULE FROM [facility] ON TOMORROW, [facility] ADVISED TO CALL WHEN PT IS DISCHARGED TO ARRANGE HOME HEALTH ADMIT DATE. CM SPOKE TO PT AND SIGNIFICANT OTHER IN ROOM, BOTH IN AGREEMENT WITH DISCHARGE HOME WITH [facility], PT REPORTS STILL WAITING ON [facility] TO ARRANGE HOME DELIVERY OF NEBULIZER. [facility], [phone], TO ARRANGE HOME DELIVERY OF NEBLUIZER WITH PT. FOR HOME HEALTH AT DISCHARGE, FAX DISCHARGE INFORMATION TO [facility] AT [phone]; NOTIFY [facility] AT [phone]. Building Services Technician: Gallo Gee
--- NOTE | 2017-02-12 19:10 | NUR ---
THIS SHIFT, PT HAS BEEN AMB WITH PT. WALKED IN HALLWAY. NO APPARENT DISTRESS. SEE ASSESSMENT
--- NOTE | 2017-02-12 19:16 | NUR ---
PT IN BED AT BEDSIDE. FIXED BED PER REQUEST DENIES FURTHER NEEDS AT THIS TIME.
[2017-02-12 20:00] VITALS: BP 134/72
[2017-02-13] VITALS: BP 130/59
--- NOTE | 2017-02-13 02:58 | NUR ---
PT RESTING COMFORTABLY, NO NEEDS AT THIS TIME. CONTINUE TO MONITOR CLOSELY.
[2017-02-13 04:00] VITALS: BP 138/78
--- NOTE | 2017-02-13 05:17 | NUR ---
PT IN BED RESTING. EVEN AND UNLABORED RESPIRATIONS NOTED.
--- NOTE | 2017-02-13 07:32 | NUR ---
RECEIVED REPORT ON PATIENT. MORNING ROUNDS MADE. PATIENT LAYING IN BED, EYES CLOSED, BUT SPOKE TO ME WHEN I CAME IN THE ROOM. ASKED ABOUT GOING HOME TODAY. ADVISED WE DON'T HAVE ORDERS YET, BUT PER NOTES SHOULD BE GOING HOME TODAY OR TOMORROW, SHE VOICED UNDERSTANDING. DENIES ANY NEEDS AT THIS TIME. WILL CONTINUE TO MONITOR. CPOC.
[2017-02-13 07:51] VITALS: BP 129/75
[2017-02-13] MEDS ORDERED: FLAGYL500 MG PO (11:03)
[2017-02-13] MEDS ORDERED: CYMBALTA30 MG PO (11:05)
[2017-02-13] MEDS ORDERED: ULTRAM50 MG PO (11:06)
--- NOTE | 2017-02-13 11:06 | NUR ---
RESTS IN ISOLATION ROOM. CALL LIGHT IN REACH. WILL MONITOR NEEDS.
[2017-02-13 11:12] VITALS: BP 127/86
--- NOTE | 2017-02-13 13:02 | NUR ---
PAGED RESP. RECEIVED RETURN CALL AND INFORMED THERAPIST THAT PATIENT WOULD LIKE BREATHING TREATMENT. SHE VOICED UNDERSTANDING.
--- NOTE | 2017-02-13 16:30 | NUR ---
DISCHARGE PAPERWORK GONE OVER WITH PATIENT AND FAMILY. ALL QUESTIONS ANSWERED AND PAPERWORK SIGNED. IV DC'D, CATHETER TIP INTACT, BANDAGE PLACED. ESCORTED PATIENT TO VEHICLE VIA WHEELCHAIR.
--- NOTE | 2017-02-16 06:55 | NUR ---
Patient Name: JEIMY RIVERO Encounter No: [id number] : 1945 Primary Insurance: MEDICARE A & B Anticipated DC Date: 02-13-2017 Planned Disposition: Home with Home Health External Planned Provider: [facility] DCP follow-up note: CM REVIEWED CHART, PT DISCHARGED HOME OVER THE WEEKEND; HOME HEALTH NOT NOTIFIED OF DISCHARGE HOME. CM FAXED DISCHARGE INFORMATION TO [facility] AT [phone] FOR NEW HOME HEALTH ADMISSION. It Disaster Recovery Manager: Gallo Gee
--- NOTE | 2017-02-18 13:27 | CN ---
PATIENT NAME:JEIMY RIVERO MEDICAL RECORD: [id number] : [birth year] LOCATION:D.M2 D.2131 ADMIT DATE: 02/04/17 ACCOUNT: [id number] CONSULTING PHYSICIAN: RUBEN HERNANDEZ MD REFERRING PHYSICIAN: JUAN MINAYA MD DATE OF CONSULTATION: 02/09/2017 CHIEF COMPLAINT: "I needed a lymph node biopsy." HISTORY: I have been asked to perform a cervical lymph node biopsy on this patient. I have seen and examined the patient. I personally reviewed the CT images. I have personally reviewed the CT report. She has at least one large cervical lymph node that appears to be behind the sternocleidomastoid muscle behind the carotid artery as well as the jugular vein. I think this is going to be a good target for us to get some tissue. The cytology on the pleural fluid is still pending. The patient does have a history of breast cancer in the past. The breast cancer was on the contralateral side of the lymph nodes. The risks, possible complications and alternatives to procedure were explained to the patient. She elects to proceed. The lymph nodes are asymptomatic. The patient is short of breath. Exertion aggravates her shortness of breath. Nothing alleviates. We discussed the possibility of nerve damage, great vessel injury as well as possibility of false positive and false negative rates with regard to lymph node biopsies. They understand this was for diagnostic purposes only and not for therapy. This is a consultation note addendum. For the typed portion of the consult note, please see the chart. This will include the past medical and surgical history, current medications, allergies, family history as well as social history. REVIEW OF SYSTEMS: Positive for shortness of breath. Positive for orthopnea. Positive for dyspnea on exertion. No nausea, no vomiting, no fever, no chills. Review of systems is negative other than as is described above. PHYSICAL EXAMINATION: GENERAL: The patient does not appear acutely ill. She does not appear chronically ill. VITAL SIGNS: Reviewed. The entire physical examination was performed with the presence of a female nurse. EARS: External ears appear normal. EYES: Extraocular movements are intact. NECK: Trachea is midline. CHEST: No intercostal retractions. PULMONARY: Mildly labored. No stridor. ABDOMEN: No peritonitis with movement. EXTREMITIES: No peripheral cyanosis. INTEGUMENT: No rash. No ulcerations. PSYCHIATRIC: Normal affect. NEUROLOGIC: Nonfocal. No lethargy. The patient answers questions appropriately. BACK: No thoracic kyphosis. LYMPHATICS: No lymphangitic streaking of the exposed extremities. CONSULT REPORT [id number] JEIMY RIVERO IMPRESSION: Cervical lymphadenopathy, likely due to a malignancy. PLAN: Right cervical lymph node biopsy in the operating room. TRANSINT:[id number] Voice Confirmation ID: [id number] DOCUMENT ID: [id number] RUBEN HERNANDEZ MD at 1327 CC: [id number] DICTATION DATE: 02/10/17 183 CHIPPER OPERATOR: 02/10/172048 DIS IN 02/13/17 [id number] [place] [address]
--- NOTE | 2017-02-18 13:27 | OP ---
PATIENT NAME: JEIMY RIVERO MEDICAL RECORD: [id number] :[birth year] LOCATION:D.M2 D.2131 ADMISSION DATE:02/04/17 SURGEON: PINO HERNANDEZ MD DATE OF OPERATION: 02/10/2017 PREOPERATIVE DIAGNOSIS: Right cervical lymphadenopathy. POSTOPERATIVE DIAGNOSIS: Right cervical lymphadenopathy. PROCEDURE: Right cervical lymph node biopsies times 2. SURGEON: Pino Hernandez MD. BOOK JACKET COVER MACHINE OPERATOR: None. BLOOD LOSS: Minimal. ANESTHESIA: General. COMPLICATIONS: None. The risks, possible complications and alternatives to procedure were explained to the patient. She elects to proceed. OPERATIVE COURSE: I reviewed the patient's CT scan immediately prior to her operation. The patient was conveyed to the operating room electively on 02/10/2017. General anesthesia was induced by the anesthesia staff. The head was tilted to the left. The right neck was sterilely prepped and draped. A axial incision was accomplished on the posterior aspect of the sternocleidomastoid. I then sharply dissected down through length of platysma. The sternocleidomastoid was retracted anteriorly. I dissected behind the internal jugular vein in the common carotid artery. I identified 2 lymph nodes. I bluntly dissected these lymph nodes out. The vascular pedicle to the lymph nodes was cauterized utilizing the Harmonic scalpel. The lymph nodes were sent for flow cytometry as well as for permanent sections. Meticulous hemostasis was achieved with the electrocautery as well as with Nikunj. The platysma was approximated with interrupted 3-0 Vicryls. The deep adipose tissue was closed with interrupted 3-0 Vicryls. The skin was approximated with a running intracuticular 4-0 Vicryl. Benzoin and Steri-Strips were applied. The patient was then extubated and conveyed to post-anesthesia care unit where she was in stable condition. TRANSINT:[id number] Voice Confirmation ID: [id number] DOCUMENT ID: [id number] OPERATIVE REPORT [id number] JEIMY RIVERO PINO HERNANDEZ MD at 1327 CC: [id number] DICTATION DATE: 02/10/171837 DIRECT OF REAL ESTATE: 02/10/172057 DIS IN 02/13/17 [place] [address]
--- NOTE | 2017-02-18 14:06 | CN ---
PATIENT NAME:JEIMY RIVERO MEDICAL RECORD: [id number] : 45 LOCATION:D. D.2131 ADMIT DATE: 02/04/17 ACCOUNT: [id number] CONSULTING PHYSICIAN: BRUNA LOVELACE MD REFERRING PHYSICIAN: JUAN MINAYA MD DATE OF CONSULTATION: 02/05/2017 CONSULT REQUESTING PHYSICIAN: Dr. Oneal REASON FOR CONSULTATION: Large right-sided pleural effusion. HISTORY OF PRESENT ILLNESS: Ms. Rivero is a 71-year-old female who has a history of CA of the breast, followed by Dr. Oneal ____ for the last couple of weeks, she has dysphagia and she has nausea and vomiting. She is seen by Dr. Amezquita and he did dilatation and gastroscopy. According to the patient, a biopsy was taken and that is pending. She was still having dysphagia and she was throwing up. She is also having worsening shortness of breath. She has a right-sided shoulder pain and also some chest discomfort. She is also losing weight. She had lost almost 40 pounds over the last 1 year. REVIEW OF SYSTEMS: Mainly in the history of present illness. PAST MEDICAL HISTORY: 1. Rheumatoid arthritis. 2. Polyarteritis nodosa. 3. Vitamin D deficiency. 4. Hypertension. 5. Hypothyroidism. 6. History of pneumonia. 7. History of cancer of the breast. 8. Gastroesophageal reflux disease. 9. Anxiety, depression. PAST SURGICAL HISTORY: 1. She has cholecystectomy. 2. Left knee replacement. 3. Hysterectomy. 4. She has bilateral mastectomy in 2010. ALLERGIES: SHE IS ALLERGIC TO CODEINE. PRESENT MEDICATIONS: On [employer] was reviewed. PERSONAL AND SOCIAL HISTORY: The patient is an ex-smoker. She is a nondrinker. FAMILY HISTORY: Significant for cardiovascular disease and diabetes mellitus. PHYSICAL EXAMINATION: GENERAL: Now, the patient is lying comfortably in bed. She is not in acute distress. VITAL SIGNS: The blood pressure is 161/71, pulse is 104, respirations 18, temperature 97.3, SPO2 95% on room air. HEENT: Conjunctivae pink, sclerae nonicteric. NECK: Supple, no JVD. CHEST: Chest excursion is minimal on the right side, there is no dullness on CONSULT REPORT [id number] JEIMY RIVERO percussion. HEART: Rhythm regular, normal sound, no murmur. ABDOMEN: Soft, bowel sounds present. No hepatosplenomegaly. RECTAL: Deferred. LYMPHATIC SYSTEM: She has a shotty lymph node in the left cervical region. IMAGING: CT scan of the chest: There is extensive mediastinal lymphadenopathy. There is a large right-sided pleural effusion shifting mediastinum to the left. CT abdomen showed diverticulitis. There is also small pericardial effusion. OTHER LABORATORY DATA: CBC: WBC 14.7, hemoglobin is 12.6, hematocrit 37.3, the platelet count 572. Chemistry: Sodium is 133, potassium is 4.5, chloride 97, BUN is 21, creatinine is 1. IMPRESSION: 1. Right large pleural effusion, rule out malignant process. I will doubt inflammatory or infectious process. 2. Compressive atelectasis of the right lung. 3. Dysphagia, possible secondary to lymphadenopathy, possible secondary to esophageal shift to the left. 4. Extensive mediastinal lymphadenopathy, rule out malignant process. 5. History of cancer of the breast. 6. Leukocytosis. RECOMMENDATION: 1. Continue the present empiric antibiotic. 2. Follow up on the thoracentesis fluid. Discussed with Dr. Humberto henley. 3. The patient is scheduled for CT-guided biopsy in a.m. Dr. Oneal, thank you for involving me in the care of Ms. Rivero. TRANSINT:[id number] Voice Confirmation ID: [id number] DOCUMENT ID: [id number] BRUNA LOVELACE MD at 1406 CC: JUAN MINAYA MD [id number] DICTATION DATE: 02/05/171714 PHARMACY AFFAIRS ASSISTANT: 02/05/171914 DIS IN 02/13/17 [facility] [address] [place] [address]
[2017-03-05 15:20] LABS: FUNGUS MYCOLOGY CULTURE Final report (())
[2017-03-26 13:17] LABS: ACID FAST CULTURE Negative (()); ACID FAST SMEAR Negative (())
== END 2017-02-13 17:00 | disposition home or self-care (01) | DRG 987 ==
LOC: D.M2 16:08
PROVIDERS: Family Medicine; Internal Medicine Gastroenterology; Specialist; ADMIT Family Medicine
PROC: 0W993ZZ Drainage of Right Pleural Cavity, Percutaneous Approach (ICD-10-PCS; principal; 2017-02-05 11:30)
PROC: 07B10ZX Excision of Right Neck Lymphatic, Open Approach, Diagnostic (ICD-10-PCS; 2017-02-09)
DX: C34.90 Malignant neoplasm of unspecified part of unspecified bronchus or lung (principal); J18.9 Pneumonia, unspecified organism; J91.0 Malignant pleural effusion; J90 Pleural effusion, not elsewhere classified; J98.11 Atelectasis; K57.92 Diverticulitis of intestine, part unspecified, without perforation or abscess without bleeding; J98.19 Other pulmonary collapse; A04.72 Enterocolitis due to Clostridium difficile, not specified as recurrent; M48.54XA Collapsed vertebra, not elsewhere classified, thoracic region, initial encounter for fracture; R13.10 Dysphagia, unspecified; M06.9 Rheumatoid arthritis, unspecified; I10 Essential (primary) hypertension; E03.9 Hypothyroidism, unspecified; F41.8 Other specified anxiety disorders; K21.9 Gastro-esophageal reflux disease without esophagitis; R59.1 Generalized enlarged lymph nodes; E86.0 Dehydration; D64.9 Anemia, unspecified; R93.8 Abnormal findings on diagnostic imaging of other specified body structures; J98.01 Acute bronchospasm; Z85.3 Personal history of malignant neoplasm of breast; Z87.891 Personal history of nicotine dependence

== ENCOUNTER 2017-02-24 13:07 | Outpatient (CLI) | payer MEDICARE, OTHER ==
[2017-02-06 15:39] VITALS: BMI 23.9
[~2017-02-24 13:07] MED LIST: ALIGN4 MG PO; ASCORBIC ACID500 MG PO; CADUET 10 MG/801 TAB PO; CLARITIN 10 MG10 MG PO; CYMBALTA30 MG PO; FLAGYL500 MG PO; FOLIC ACID1 MG PO; MULTIPLE VITAMI1 TA1 PO; PROTONIX40 MG PO; SYNTHROID112 MCG PO; ULTRAM50 MG PO; VITAMIN B-121000 MCG PO; XALATAN 0.0052.5 ML EACH EYE
== END 2017-02-24 15:30 | disposition home or self-care (01) ==
LOC: D.OPS 13:07
DX: C34.00 Malignant neoplasm of unspecified main bronchus (principal)

== ENCOUNTER 2017-03-18 06:27 | Day surgery (SDC) | payer MEDICARE, OTHER ==
[~2017-03-18] VITALS: Ht 157.5 cm; Wt 59.0 kg
--- NOTE | ~2017-03-18 | OP ---
PATIENT NAME: JEIMY RIVERO MEDICAL RECORD: [id number] :45 LOCATION:D.OPS ADMISSION DATE: SURGEON: ABRAHAM RAJAN MD DATE OF OPERATION: 03/18/2017 PREOPERATIVE DIAGNOSES: 1. Bgm-bwmtl-moxt lung cancer. 2. Thyroid disease. 3. History of breast cancer. 4. Hypertension. POSTOPERATIVE DIAGNOSES: 1. Yun-gtvfz-jhjf lung cancer. 2. Thyroid disease. 3. History of breast cancer. 4. Hypertension. PROCEDURES: 1. Right subclavian vein PowerPort placement. 2. Fluoroscopic interpretation. SURGEON: Abraham Rajan MD REPORT OF PROCEDURE: The patient's right chest was prepped and draped in sterile fashion. A needle was used to cannulate the right subclavian vein and a guidewire was advanced with ease. Fluoro was used to note that the wire was in good position in the venous system. A skin incision was made on the right superolateral chest and a subcutaneous pouch was made over the pectoral fascia. The catheter was then tunneled between this pouch and the wire exit site. The port was sutured to the pectoral fascia using interrupted 2-0 Prolene times 2. The catheter was then cut with a beveled tip at 22 cm. The dilator trocar device was placed over the wire, and the wire and dilator were removed. The catheter tip was advanced through the trocar with ease and the trocar was removed. The catheter tip rested in good position at the right atrial superior vena caval junction. The catheter aspirated nonpulsatile dark blood and flushed easily with heparinized saline. The subcutaneous tissues were then reapproximated with interrupted 3-0 Vicryl, and the skin was closed with running subcutaneous 5-0 Monocryl. COMPLICATIONS: None. CONDITION: Stable. ANESTHESIA: General endotracheal. BLOOD LOSS: Minimal. TRANSINT:[id number] Voice Confirmation ID: [id number] DOCUMENT ID: [id number] OPERATIVE REPORT [id number] JOSEFAJEIMY MAZARIEGOS ABRAHAM RAJAN MD at 1123 CC: YESY RESENDEZ MD and JUAN MINAYA MD [id number] DICTATION DATE: 03/18/17 1023 SUPERINTENDENT TRANSMISSION: 03/18/17 [address] [facility] [place] 03/18/17 [facility] [address] [place] [address]
[2017-03-18 06:58] LABS: HEMATOCRIT 35.9 % (36.0-48.0); HEMOGLOBIN 11.9 g/dL (12-16); MCH 28.9 pg (26.0-34.0); MCHC 33.1 g/dL (31.0-37.0); MCV 87.1 fL (80.0-100.0); MEAN PLATELET VOLUME 9.8 fL (7.4-10.4); RBC 4.12 10x6/uL (4.00-5.40); WBC 2.4 10x3/uL (4.8-10.8)
[2017-03-18 07:00] LABS: PLATELET COUNT 348 10x3/uL (130-400)
[2017-03-18 07:08] LABS: APTT 24.2 SECONDS (22.8-39.4); INR 0.99 (0.85-1.17); PROTIME 12.7 SECONDS (11.6-15.0)
[2017-03-18 07:30] LABS: BASOPHILS 3 % (0-2); EOSINOPHILS 3 % (0-7); LYMPHOCYTES 16 % (15-50); MONOCYTES 6 % (2-11); NEUTROPHILS 70 % (40-80)
[2017-03-18 07:31] LABS: PLATELET ESTIMATE NORMAL
[2017-03-18 07:32] LABS: ANISOCYTOSIS OCC; POIKILOCYTOSIS OCC
[2017-03-18 07:33] LABS: ELLIPTOCYTES OCC; ROULEAUX OCC; TEAR DROP CELLS OCC
[2017-03-18] MEDS ORDERED: DIOVAN80 MG PO (08:18)
[2017-03-18] MEDS ORDERED: MARINOL5 MG PO (08:19)
[2017-03-18] MEDS ORDERED: ONCOLOGY MOUTHWA5 ML PO (08:20)
[2017-03-18 08:24] VITALS: Ht 157.5 cm; Wt 59.0 kg
[2017-03-18] MEDS ORDERED: DILAUDID2 MG PO (10:19)
== END 2017-03-18 13:00 | disposition home or self-care (01) ==
LOC: D.OPS 06:27 → D.PAN 10:30 → D.OPS 12:00
PROVIDERS: Anesthesiology
DX: C34.90 Malignant neoplasm of unspecified part of unspecified bronchus or lung (principal); E07.9 Disorder of thyroid, unspecified; Z85.3 Personal history of malignant neoplasm of breast; I10 Essential (primary) hypertension

== ENCOUNTER → 2017-04-12 12:03 | Outpatient (CLI) | payer MEDICARE, OTHER ==
[2017-03-18 08:24] VITALS: BMI 23.8
[~2017-04-12 12:03] MED LIST changes: +DILAUDID2 MG PO; +DIOVAN80 MG PO; +MARINOL5 MG PO; +ONCOLOGY MOUTHWA5 ML PO
== END | disposition home or self-care (01) ==
LOC: D.CT 12:03 → D.RAD 13:30 → D.CT 14:00 → D.RAD 04-13 10:30
DX: C34.00 Malignant neoplasm of unspecified main bronchus (principal); R13.10 Dysphagia, unspecified

== ENCOUNTER → 2017-06-15 13:24 | Outpatient (CLI) | payer MEDICARE, OTHER ==
[2017-03-18 08:24] VITALS: BMI 23.8
[~2017-06-15 13:24] MED LIST changes: +ACETAMINOPHEN500 M1 PO; +CYMBALTA20 MG PO; +LOTREL 10/20 CA1 CAP PO; +STERAPRED 5MG 125 MG PO
== END | disposition home or self-care (01) ==
LOC: D.CT 06-08 08:30
DX: C34.90 Malignant neoplasm of unspecified part of unspecified bronchus or lung (principal)

== ENCOUNTER → 2017-07-26 13:27 | Outpatient (CLI) | payer MEDICARE, OTHER ==
[2017-03-18 08:24] VITALS: BMI 23.8
[~2017-07-26 13:27] MED LIST changes: +BUPRENORPHIN-N1 EACH SL; +NEURONTIN800 MG PO; +ROBAXIN500 MG PO; +ZYPREXA20 MG PO
== END | disposition home or self-care (01) ==
LOC: D.CT 13:27
DX: R10.9 Unspecified abdominal pain (principal); C34.00 Malignant neoplasm of unspecified main bronchus

== ENCOUNTER 2017-07-28 18:58 | Inpatient (IN) | payer MEDICARE, OTHER ==
[~2017-07-28] VITALS: Ht 157.5 cm; Wt 54.3 kg
--- NOTE | ~2017-07-28 | CN ---
PATIENT NAME:JEIMY RIVERO MEDICAL RECORD: [id number] : 45 LOCATION:D.MS [address]2200 ADMIT DATE: 07/28/17 ACCOUNT: [id number] CONSULTING PHYSICIAN: ISAÍAS CROSS MD REFERRING PHYSICIAN: KENIA ZAPATA MD DATE OF CONSULTATION: 08/17/2017 IDENTIFYING DATA: The patient is 71 years old and she is admitted to the hospital on a voluntary basis. CHIEF COMPLAINT: Confusion. HISTORY OF PRESENT ILLNESS: The patient unfortunately has an advanced case of lung cancer. She is currently hospitalized with a pleural effusion. She has been refusing a chest x-ray for 2 days. She is not remembering things that are said or done with her. On interview, she is very impaired cognitively. She also tells me she does not want any further treatment and that is why she has refused the chest x-rays. MENTAL STATUS EXAMINATION: The patient is awake, alert, and oriented to person and place only. Her mood is depressed. Her affect is constricted. Thought processes are circumstantial. Memory, concentration, and abstraction abilities are at least moderately impaired. She denies any active intent to harm herself or others as well as psychotic symptoms. ASSESSMENT: Dementia versus delirium. PLAN: The patient is clearly not cognitively intact and at this point is not able to make reasonable informed consent, decisions about her person or state. She is saying things that are contradictory. She is not oriented fully and is not able to discuss the relative risks and benefits of either continuing with treatment for her lung cancer or discontinuing it. It is my understanding that her POA is in place and I think it is appropriate at this time for him for his authority to be activated. It is also my secondhand understanding that the case is advanced and that given her circumstances, comfort care, and hospice are not unreasonable options. TRANSINT:[id number] Voice Confirmation ID: [id number] DOCUMENT ID: [id number] ISAÍAS CROSS MD at 1650 CC: [id number] DICTATION DATE: 08/17/17 1526 GLASS LATHE OPERATOR: 08/17/17 1555 ADM IN [place] [address] [place] [address]
--- NOTE | ~2017-07-28 | HEMODYNAMI ---
PATIENT:JEIMY RIVERO MEDICAL RECORD: [id number] : 45 LOCATION:FavianNH D.2201 ADMISSION DATE: 07/28/17 Generatedon:08/10/201713:12 Patient name: JEIMY RIVERO Patient #: [id number] SSN: DO B: 1945 Date of study: 08/10/2017 Page: Of Hemodynamic Procedure Report Patient Data Patient Demographics Procedure consent was obtained First Name: JEIMY Gender: Female Last Name: JOSEFA : 1945 Middle Initial: ALBERTINA Age: 71 year(s) Patient #: [id number] Race: Unknown Additional ID: [id number] Contact details Address: [address] [place] [address] State: [place] City: [place] Zip code: [address] Past Medical History Allergies Allergen Reaction Date Comments Reported Codeine 08/10/2017 Admission Admission Data Admission Date: 07/28/2017 Admission Time: 22:34 Room #: D.2201 Height (in.): 62 BSA: 1.53 (m2) Height (cm.): 157.48 BMI: 21.77 (kg/m2) Weight (lbs.): 119 Weight (kg.): 53.98 Procedure Procedure Types Cath Procedure Peripheral Cath Diagnostic Procedure Cath Peripheral Miscellaneous Chest Tube Placement Procedure Description Procedure Date Procedure Date: 08/10/2017 Procedure Start Time: 12:54 Procedure Staff Name Function Asher Frost MD Performing Physician Viridiana Martínez RT Corporate Auditor Viridiana Martínez RT Monitor Horace Quach RT Scrub Ashlee Mccoy RN Nurse Procedure Data Cath Procedure Fluoroscopy Diagnostic fluoroscopy Total fluoroscopy Time: 6.4 time: 6.4 min min Diagnostic fluoroscopy Total fluoroscopy dose: 56 dose: 56 mGy mGy Diagnostic catheters Device Type Used For End Catheter Placement Merit Impress KA 2 5Fr 40CM catheter ([id number]) Procedure Medications Medication Administration Route Dosage Lidocaine 1% added to field 20 Heparin Flush Bag added to field 1 bags (1000units/500ml NS) Dilaudid I.V. 2 mg Hemodynamics Rest BSA: 1.53 (m2) O2 Consumption: Estimated: 173.99 (ml/min) O2 Consumption indexed : Estimated:113.72 (ml/min/m) Heart Rate: 128 (bpm) Snapshots Pre Cath Intra NCS Post Cath Vital Signs Time Heart Resp SPO2 etCO2 NIBP (mmHg) Rhythm Pain Sedation Rate (ipm) (%) (mmHg) Status Level (bpm) 12:42:26 117 16 99 29.3 129/70(100) NSR 0 (11) , 10(A) No pain 12:46:34 96 13 100 30.1 111/73(94) NSR 0 (11) , 10(A) No pain 12:50:34 115 17 100 29.3 114/80(102) NSR 0 (11) , 10(A) No pain 12:54:35 117 14 99 30.8 114/75(91) NSR 0 (11) , 10(A) No pain 12:59:34 98 14 98 29.3 Measuring NSR 3 (11) , 10(A) Tolerable 13:00:40 120 16 97 31.5 140/80(113) NSR 6 (11) , 10(A) Intense 13:04:50 116 14 98 31.5 128/78(97) NSR 3 (11) , 10(A) Tolerable 13:08:53 123 12 98 31.5 130/82(108) NSR 3 (11) , 10(A) Tolerable Medications Time Medication Route Dose Verified Delivered Reason Notes Effe ctiveness by by 12:52:09 Lidocaine 1% added 20ml M Brook Frost used for to vial MD TATUM procedure field 12:52:27 Heparin Flush added 1 M J Santosh M J Santosh used for Bag to bags MD TATUM procedure (1000units/500ml field NS) 13:04:10 Dilaudid I.V. 2 mg M Brook Rosado for chest chest MD Mccoy RN pain pain related to chest tube Procedure Log Time Note 11:24:12 Patient Height : 62 inches 11:24:19 Patient Weight : 119 lbs 11:25:02 Use device set IR Diagnostic 12:12:39 Sterile Angiographic Pack opened to sterile field. 12:12:41 Bag Decanter (2001S) opened to sterile field. 12:25:52 Time tracking: Regular hours (M-F 7:00 - 5:00) 12:41:17 Signed procedure consent form obtained from patient. 12:41:18 ECG and BP/O2 sat monitors applied to patient. 12:41:19 Vital chart was started 12:41:21 Baseline sample Acquired. 12:41:22 Full Disclosure recording started 12:41:25 - 12:41:31 H&P Date Dictated: 08/10/2017 Within 30 days and on chart.. 12:41:34 Pre-procedure instructions explained to patient. 12:41:34 Pre-op teaching completed and patient verbalized understanding. 12:41:40 Family unavailable. 12:41:43 Patient NPO since Midnight. 12:42:10 Patient allergic to CodeineCIPRP 12:42:38 Drain bag connector([id number]) opened to sterile field. 12:42:39 Cook Billiary 16fr. Drainage Cath (R75212) opened to sterile field. 12:43:05 STOPCOCK 3-Way Large Bore ([id number]) opened to sterile field. 12:43:42 IV patent on arrival in port with 0.9% NaCl at O. 12:43:52 Right chest area was prepped with chlora-prep and draped in sterile fashion 12:43:57 - 12:48:09 DOC .035 wire (H75092) opened to sterile field. 12:49:08 Physician arrived 12:50:20 Final Timeout: patient, procedure, and site verified with staff and physician. All members of the team are in agreement. 12:50:43 DILATOR, VESSEL 14/20 opened to sterile field. 12:50:59 NO SEDATION USED FOR PROCEDURE 12:52:05 Procedure started. 12:52:09 Lidocaine 1% 20ml vial added to field was administered by Asher Frost MD; used for procedure; 12:52:27 Heparin Flush Bag (1000units/500ml NS) 1 bags added to field was administered by Asher Frost MD; used for procedure; 12:55:37 A Merit Impress KA 2 5Fr 40CM catheter ([id number]) was advanced over the wire and used for . 12:55:39 GLIDE WIRE ANGLE 180cm ([id number]) opened to sterile field. 12:57:17 Ko 180 wire (P02784) opened to sterile field. 13:00:52 AMPLATZ Super stiff 180cm wire ([id number]) opened to sterile field. 13:03:09 16FR TUBE PLACED IN CHEST 13:04:10 Dilaudid 2 mg I.V. was administered by Ashlee Mccoy RN; for chest pain ; chest pain related to chest tube 13:04:35 SUTURE ETHILON 2-0 BLK MONO FS opened to sterile field. 13:06:36 Procedure ended.(Physican Out) 13:07:53 Fluoroscopy time 06.40 minutes. 13:07:58 Flurop Dose total: 56 13:07:58 Fluoroscopy dose: 56 mGy 13:09:22 Procedure and supply charges have been captured, reviewed, submitted an d are correct. 13:12:36 Vital chart was stopped Device Usage Item Name Manufacture Quantity Catalog Hospital Part [facility] Lot# / Number Charge Number Stock Stock Serial# Code Sterile Cardinal 1 [id number] 5 Angiographic Pack Health Bag Decanter Microtek 1 [id number] 01917 [id number] 5 () Medical Inc. Drain bag Cook Medical 1 [id number] 258529 403917 [id number] 5 [id number] connector([id number]) Cook Billiary Cook Medical 1 F63638 392940 114285 5 [id number] 16fr. Drainage Cath (A98501) STOPCOCK 3-Way [employer] Medical 1 N40399 349913 0933 821627 5 [id number] Large Bore (S02898) DOC .035 wire [employer] 1 S71048 127557 075764 5 ([id number]) DILATOR, VESSEL [employer] 1 H15638 844946 451877 114616 5 [id number] Merit Impress KA Merit 1 [id number] 318218 281870 5 2 5Fr 40CM Medical catheter ([id number]) GLIDE WIRE ANGLE Terumo 1 HB1461 333697 212571 528342 5 180cm (RJ0706) Ko 180 wire Cook Medical 1 S65940 949399 912114 7214870 5 [id number] (B38002) AMPLATZ Super Henderson 1 [id number] 481939 755040 5 stiff 180cm wire Scientific ([id number]) SUTURE ETHILON Ethicon 1 664 107136 741846 5 2-0 BLK MONO FS Signature Audit Loraine Stage Time Signature Unsigned Intra-Procedure 08/10/2017 Viridiana Martínez 1:12:34 PM RT(R) Signatures Monitor : Viridiana Martínez RT Signature : Date : Time : [facility] [address] [place] [address]
--- NOTE | ~2017-07-28 | CN ---
PATIENT NAME:JEIMY RIVERO MEDICAL RECORD: [id number] : 45 LOCATION:D.MS [address]2200 ADMIT DATE: 07/28/17 ACCOUNT: [id number] CONSULTING PHYSICIAN: BRUNA LOVELACE MD REFERRING PHYSICIAN: KENIA ZAPATA MD DATE OF CONSULTATION: 08/04/2017 CONSULT REQUESTING PHYSICIAN: Eugenia Noble MD REASON FOR CONSULTATION: Right-sided pleural effusion. HISTORY OF PRESENT ILLNESS: Ms. Rivero is a 71-year-old female, who is now very confused and agitated. The history was taken by reviewing the patient's note. The patient does have a history of stage IV CA of the lung, followup by Dr. Oneal. She is on carboplatin and Taxol. The patient came in with abdominal pain. Found out the patient has perforated diverticulum and diverticulitis. She is being seen by Dr. Freitas and they are treating her conservatively. The repeated chest radiograph showed worsening right-sided pleural effusion. Also, she has worsening shortness of breath and required oxygenation. The patient is also confused. REVIEW OF SYSTEMS: As in history of present illness. PAST MEDICAL HISTORY: 1. Stage IV metastatic CA of the lung. 2. Hypothyroidism. 3. Hypertension. 4. History of pneumonia. 5. History of CA of breast. 6. History of diverticulitis. 7. Anxiety, depression. PAST SURGICAL HISTORY: 1. Cholecystectomy. 2. Left knee replacement. 3. Hysterectomy. 4. Bilateral mastectomy. ALLERGIES: SHE IS ALLERGIC TO CIPRO, FLAGYL, CODEINE AND BENADRYL. MEDICATIONS: On Press-sense is reviewed. PERSONAL AND SOCIAL HISTORY: The patient is an ex-smoker. She is a nondrinker. FAMILY HISTORY: Significant for cardiovascular disease, diabetes mellitus. PHYSICAL EXAMINATION: GENERAL: Now, the patient is lying comfortably in bed. She is not in acute distress. VITAL SIGNS: The blood pressure is 155/82, pulse is 117, respiration 20, temperature 99, SpO2 of 98% on 2 liters nasal cannula. HEENT: Conjunctivae are pink. Sclerae are not icteric. NECK: The neck is supple, no JVD. CHEST: There is dullness on percussion at the right up to mid lung. There is a wheeze on forceful expiration. CONSULT REPORT [id number] JEIMY RIVERO HEART: Rhythm regular, normal sound, no murmur. ABDOMEN: The abdomen is soft. There is tenderness on deep palpation and the bowel sounds are abnormal. RECTAL: Deferred. EXTREMITIES: No cyanosis, no clubbing. There is no pedal edema. CENTRAL NERVOUS SYSTEM: The patient is awake and alert, but the patient is very confused and she is very agitated. CHEST RADIOGRAPH: There is a large right-sided pleural effusion with compressive atelectasis. OTHER LABORATORY DATA: CBC: WBC 7.2, hemoglobin 8.8, hematocrit 25.3, the platelet count 125. Chemistry: Sodium 134 on admission and now 137, BUN is 25, creatinine 0.7. IMPRESSION: 1. Right-sided pleural effusion, possible malignant with a history of CA of the breast. 2. Stage IV cancer of the lung. 3. Diverticulitis. 4. Acute hypoxic respiratory failure. 5. Hyponatremia. 6. Anemia. 7. Peritonitis. RECOMMENDATION: 1. Continue supplemental oxygen. Continue Xopenex nebulizer. Continue present empiric antibiotic for diverticulitis. 2. We will proceed with right-sided thoracentesis, follow up labs. The prognosis is poor. Dr. Eugenia Noble, thank you for involving me in the care of Ms. Rivero. TRANSINT:[id number] Voice Confirmation ID: [id number] DOCUMENT ID: [id number] BRUNA LOVELACE MD at 1806 CC: [id number] DICTATION DATE: 08/04/17 1557 POWER SHOVEL ENGINEER: 08/04/17 1745 ADM IN [place] [id number] [place] [id number]
[~2017-07-28 18:58] MED LIST changes: -ACETAMINOPHEN500 M1 PO; -BUPRENORPHIN-N1 EACH SL; -CYMBALTA20 MG PO; -LOTREL 10/20 CA1 CAP PO; -NEURONTIN800 MG PO; -ROBAXIN500 MG PO; -STERAPRED 5MG 125 MG PO; -ZYPREXA20 MG PO
[2017-07-28] MEDS ORDERED: SYNTHROID112 MCG PO (19:16)
[2017-07-28] MEDS ORDERED: CYMBALTA20 MG PO (19:16)
[2017-07-28] MEDS ORDERED: PROTONIX40 MG PO (19:16)
[2017-07-28] MEDS ORDERED: LOTREL 10/20 CA1 CAP PO (19:17)
[2017-07-28] MEDS ORDERED: ULTRAM50 MG PO (19:17)
[2017-07-28] MEDS ORDERED: STERAPRED 5MG 125 MG PO (19:17)
[2017-07-28] MEDS ORDERED: ACETAMINOPHEN500 M1 PO (19:18)
[2017-07-28 21:25] LABS: BASOPHILS 0.1 % (0-2); EOSINOPHILS 0 % (0-7); HEMATOCRIT 27.7 % (36.0-48.0); HEMOGLOBIN 9.7 g/dL (12-16); IMMATURE GRANULOCYTES 0.3 % (0-5); LYMPHOCYTES 4.4 % (15-50); MCV 91.4 fL (80.0-100.0); MEAN PLATELET VOLUME 9.6 fL (7.4-10.4); MONOCYTES 5.5 % (2-11); NEUTROPHILS 89.7 % (40-80); PLATELET COUNT 250 10x3/uL (130-400); RBC 3.03 10x6/uL (4.00-5.40); RDW 16.7 % (11.5-14.5)
[2017-07-28 21:36] LABS: APPEARANCE CLEAR (CLEAR); BILIRUBIN NEGATIVE (NEGATIVE); COLOR YELLOW (YELLOW); GLUCOSE NEGATIVE (NEGATIVE); KETONE NEGATIVE (NEGATIVE); NITRITE NEGATIVE (NEGATIVE); PROTEIN TRACE mg/dL (NEGATIVE); SPECIFIC GRAVITY 1.025 (1.005-1.020); UROBILINOGEN NORMAL (NORMAL)
[2017-07-28 21:40] LABS: BACTERIA FEW /hpf (NONE SEEN); EPITHELIAL CELLS 0-5 /hpf (0-5); WHITE CELLS - URINE 0-5 /hpf (0-5)
[2017-07-28 21:42] LABS: ALBUMIN 2.7 g/dL (3.4-5.0); BILIRUBIN - TOTAL 0.62 mg/dL (0.2-1.3); CALCIUM 10.5 mg/dL (8.5-10.1); CARBON DIOXIDE 26.5 mmol/L (21.0-32.0); POTASSIUM - SERUM 3.5 mmol/L (3.5-5.1); PROTEIN - SERUM 7.3 g/dL (6.4-8.2)
[2017-07-28 23:40] VITALS: BP 148/59; BMI 23.3
[2017-07-29 04:00] VITALS: BP 90/48
[2017-07-29 04:45] LABS: BASOPHILS 0 % (0-2); EOSINOPHILS 0.1 % (0-7); HEMATOCRIT 24.3 % (36.0-48.0); HEMOGLOBIN 8.3 g/dL (12-16); IMMATURE GRANULOCYTES 0.4 % (0-5); LYMPHOCYTES 1.3 % (15-50); MCH 31.1 pg (26.0-34.0); MCHC 34.2 g/dL (31.0-37.0); MEAN PLATELET VOLUME 9.5 fL (7.4-10.4); MONOCYTES 9.3 % (2-11); NEUTROPHILS 88.9 % (40-80); PLATELET COUNT 196 10x3/uL (130-400); RBC 2.67 10x6/uL (4.00-5.40); RDW 16.8 % (11.5-14.5); WBC 8.3 10x3/uL (4.8-10.8)
[2017-07-29 05:05] LABS: ALBUMIN 2.1 g/dL (3.4-5.0); ANION GAP 11.4 mmol/L (8-16); BILIRUBIN - TOTAL 0.49 mg/dL (0.2-1.3); CALCIUM 9.4 mg/dL (8.5-10.1); CREATININE - SERUM 0.9 mg/dL (0.6-1.3); POTASSIUM - SERUM 3.4 mmol/L (3.5-5.1)
[2017-07-29 08:25] VITALS: BP 103/58
[2017-07-29 08:59] LABS: APTT 36.7 SECONDS (22.8-39.4); INR 1.28 (0.85-1.17); PROTIME 15.5 SECONDS (11.6-15.0)
[2017-07-29 11:26] VITALS: BP 107/60
[2017-07-29 13:46] VITALS: Ht 157.5 cm; Wt 54.3 kg
[2017-07-29 16:00] VITALS: BP 107/60
[2017-07-29 20:00] VITALS: BP 125/62
[2017-07-30] VITALS (13 sets, daily range): BP systolic 95–156; BP diastolic 58–85
[2017-07-30 05:27] LABS: BASOPHILS 0 % (0-2); EOSINOPHILS 0 % (0-7); HEMATOCRIT 28.4 % (36.0-48.0); HEMOGLOBIN 9.7 g/dL (12-16); IMMATURE GRANULOCYTES 0.2 % (0-5); LYMPHOCYTES 3.8 % (15-50); MCH 31.3 pg (26.0-34.0); MCHC 34.2 g/dL (31.0-37.0); MCV 91.6 fL (80.0-100.0); MEAN PLATELET VOLUME 9.7 fL (7.4-10.4); MONOCYTES 9.6 % (2-11); NEUTROPHILS 86.4 % (40-80); PLATELET COUNT 234 10x3/uL (130-400); RDW 16.7 % (11.5-14.5)
[2017-07-30 05:40] LABS: WBC 4.7 10x3/uL (4.8-10.8)
[2017-07-30 05:43] LABS: ALBUMIN 2.2 g/dL (3.4-5.0); ALKALINE PHOSPHATASE 120 U/L (46-116); ALT (SGPT) 21 U/L (10-68); CALC OSMOLALITY 266 mosm/kg (275-300); CALCIUM 9.9 mg/dL (8.5-10.1); CARBON DIOXIDE 19.6 mmol/L (21.0-32.0); CHLORIDE - SERUM 99 mmol/L (98-107); GLUCOSE 107 mg/dL (74-106); POTASSIUM - SERUM 3.5 mmol/L (3.5-5.1); PROTEIN - SERUM 6.3 g/dL (6.4-8.2); SODIUM 133 mmol/L (136-145); UREA NITROGEN 16 mg/dL (7-18)
[2017-07-30 05:44] LABS: CREATININE - SERUM 0.6 mg/dL (0.6-1.3); eGFR NON AFRICAN AMERICAN > 90 mL/min (90-120)
[2017-07-30 05:45] LABS: APTT 30.3 SECONDS (22.8-39.4); INR 1.29 (0.85-1.17); PROTIME 15.6 SECONDS (11.6-15.0)
[2017-07-31] VITALS: BP 119/51
[2017-07-31 04:00] VITALS: BP 118/57
[2017-07-31 05:33] LABS: BASOPHILS 0.1 % (0-2); EOSINOPHILS 0.1 % (0-7); HEMATOCRIT 28.3 % (36.0-48.0); HEMOGLOBIN 9.7 g/dL (12-16); IMMATURE GRANULOCYTES 0.6 % (0-5); LYMPHOCYTES 6.1 % (15-50); MCHC 34.3 g/dL (31.0-37.0); MCV 90.4 fL (80.0-100.0); MEAN PLATELET VOLUME 9.5 fL (7.4-10.4); MONOCYTES 10.5 % (2-11); NEUTROPHILS 82.6 % (40-80); PLATELET COUNT 233 10x3/uL (130-400); RBC 3.13 10x6/uL (4.00-5.40); RDW 16.8 % (11.5-14.5); WBC 8.4 10x3/uL (4.8-10.8)
[2017-07-31 05:44] LABS: ALBUMIN 1.8 g/dL (3.4-5.0); ALKALINE PHOSPHATASE 86 U/L (46-116); ALT (SGPT) 21 U/L (10-68); BILIRUBIN - TOTAL 0.41 mg/dL (0.2-1.3); CALC OSMOLALITY 269 mosm/kg (275-300); CALCIUM 9.9 mg/dL (8.5-10.1); CARBON DIOXIDE 22.4 mmol/L (21.0-32.0); CHLORIDE - SERUM 99 mmol/L (98-107); CREATININE - SERUM 0.7 mg/dL (0.6-1.3); GLUCOSE 137 mg/dL (74-106); POTASSIUM - SERUM 3.6 mmol/L (3.5-5.1); PROTEIN - SERUM 5.9 g/dL (6.4-8.2); SODIUM 132 mmol/L (136-145); eGFR NON AFRICAN AMERICAN 87 mL/min (90-120)
[2017-07-31 05:46] LABS: UREA NITROGEN 21 mg/dL (7-18)
[2017-07-31 11:38] VITALS: BP 117/58
[2017-07-31 15:58] VITALS: BP 108/40
[2017-07-31 20:00] VITALS: BP 107/68
[2017-08-01] VITALS (17 sets, daily range): BP systolic 63–125; BP diastolic 25–82
[2017-08-01 02:07] LABS: BASOPHILS 0 % (0-2); EOSINOPHILS 0 % (0-7); HEMATOCRIT 30.6 % (36.0-48.0); HEMOGLOBIN 9.6 g/dL (12-16); IMMATURE GRANULOCYTES 1.5 % (0-5); LYMPHOCYTES 5.4 % (15-50); MCHC 31.4 g/dL (31.0-37.0); MEAN PLATELET VOLUME 10.4 fL (7.4-10.4); NEUTROPHILS 85.1 % (40-80); PLATELET COUNT 242 10x3/uL (130-400); RDW 18.8 % (11.5-14.5); WBC 3.9 10x3/uL (4.8-10.8)
[2017-08-01 02:12] LABS: ALBUMIN 1.6 g/dL (3.4-5.0); BILIRUBIN - TOTAL 0.5 mg/dL (0.2-1.3); CALCIUM 9.6 mg/dL (8.5-10.1); CARBON DIOXIDE 18.8 mmol/L (21.0-32.0); POTASSIUM - SERUM 3.8 mmol/L (3.5-5.1); PROTEIN - SERUM 4.9 g/dL (6.4-8.2)
[2017-08-01 02:44] LABS: ERYTHROCYTE SEDIMENTATION RATE 98 mm/hr (0-30)
[2017-08-02] VITALS: BP 100/44
[2017-08-02 04:00] VITALS: BP 122/46
[2017-08-02 04:54] LABS: BASOPHILS 0.4 % (0-2); EOSINOPHILS 0.2 % (0-7); IMMATURE GRANULOCYTES 0.9 % (0-5); LYMPHOCYTES 3.4 % (15-50); MCH 31.9 pg (26.0-34.0); MCHC 35.7 g/dL (31.0-37.0); MEAN PLATELET VOLUME 9.6 fL (7.4-10.4); NEUTROPHILS 89.1 % (40-80); RDW 17.2 % (11.5-14.5)
[2017-08-02 04:57] LABS: ANION GAP 12.2 mmol/L (8-16); BILIRUBIN - TOTAL 0.3 mg/dL (0.2-1.3); CALCIUM 10.2 mg/dL (8.5-10.1); CARBON DIOXIDE 21.6 mmol/L (21.0-32.0); POTASSIUM - SERUM 3.8 mmol/L (3.5-5.1); PROTEIN - SERUM 5.2 g/dL (6.4-8.2)
[2017-08-02 04:58] LABS: HEMATOCRIT 21.3 % (36.0-48.0); HEMOGLOBIN 7.6 g/dL (12-16); MCV 89.5 fL (80.0-100.0); PLATELET COUNT 171 10x3/uL (130-400); RBC 2.38 10x6/uL (4.00-5.40); WBC 5.4 10x3/uL (4.8-10.8)
[2017-08-02 05:04] LABS: ALBUMIN 2.2 g/dL (3.4-5.0)
[2017-08-02 08:50] VITALS: BP 108/53
[2017-08-02 11:40] VITALS: BP 113/58
[2017-08-02 21:10] VITALS: BP 126/54
[2017-08-03 00:59] VITALS: BP 121/58
[2017-08-03 04:17] VITALS: BP 113/62
[2017-08-03 05:55] LABS: BASOPHILS 0.2 % (0-2); EOSINOPHILS 0.1 % (0-7); HEMATOCRIT 25.8 % (36.0-48.0); HEMOGLOBIN 8.8 g/dL (12-16); IMMATURE GRANULOCYTES 0.9 % (0-5); LYMPHOCYTES 3.3 % (15-50); MCH 30.2 pg (26.0-34.0); MCHC 34.1 g/dL (31.0-37.0); MCV 88.7 fL (80.0-100.0); MEAN PLATELET VOLUME 9.3 fL (7.4-10.4); MONOCYTES 5.2 % (2-11); NEUTROPHILS 90.3 % (40-80); PLATELET COUNT 142 10x3/uL (130-400); RBC 2.91 10x6/uL (4.00-5.40); RDW 17.2 % (11.5-14.5); WBC 8.9 10x3/uL (4.8-10.8)
[2017-08-03 05:56] LABS: ALBUMIN 2.5 g/dL (3.4-5.0); ALKALINE PHOSPHATASE 62 U/L (46-116); ALT (SGPT) 29 U/L (10-68); BILIRUBIN - TOTAL 0.46 mg/dL (0.2-1.3); CALC OSMOLALITY 274 mosm/kg (275-300); CALCIUM 11.4 mg/dL (8.5-10.1); CARBON DIOXIDE 22.9 mmol/L (21.0-32.0); CHLORIDE - SERUM 103 mmol/L (98-107); CREATININE - SERUM 0.8 mg/dL (0.6-1.3); GLUCOSE 95 mg/dL (74-106); POTASSIUM - SERUM 3.9 mmol/L (3.5-5.1); PROTEIN - SERUM 5.4 g/dL (6.4-8.2); SODIUM 134 mmol/L (136-145); UREA NITROGEN 31 mg/dL (7-18); eGFR NON AFRICAN AMERICAN 75 mL/min (90-120)
[2017-08-03 08:58] VITALS: BP 140/66
[2017-08-03 11:33] VITALS: BP 155/66
[2017-08-03 15:46] VITALS: BP 170/71
[2017-08-03 21:12] VITALS: BP 151/68
[2017-08-04 01:10] VITALS: BP 137/70
[2017-08-04 04:30] VITALS: BP 167/69
[2017-08-04 04:53] LABS: BASOPHILS 0.1 % (0-2); EOSINOPHILS 0.3 % (0-7); HEMATOCRIT 25.3 % (36.0-48.0); HEMOGLOBIN 8.8 g/dL (12-16); IMMATURE GRANULOCYTES 3.2 % (0-5); LYMPHOCYTES 3.1 % (15-50); MCH 30.4 pg (26.0-34.0); MCHC 34.8 g/dL (31.0-37.0); MCV 87.5 fL (80.0-100.0); MEAN PLATELET VOLUME 9.9 fL (7.4-10.4); MONOCYTES 9.3 % (2-11); PLATELET COUNT 125 10x3/uL (130-400); RBC 2.89 10x6/uL (4.00-5.40); RDW 17.3 % (11.5-14.5); WBC 7.2 10x3/uL (4.8-10.8)
[2017-08-04 05:03] LABS: ALBUMIN 2.6 g/dL (3.4-5.0); ALKALINE PHOSPHATASE 63 U/L (46-116); CALC OSMOLALITY 277 mosm/kg (275-300); CALCIUM 11.3 mg/dL (8.5-10.1); CARBON DIOXIDE 23.5 mmol/L (21.0-32.0); CHLORIDE - SERUM 104 mmol/L (98-107); CREATININE - SERUM 0.7 mg/dL (0.6-1.3); GLUCOSE 107 mg/dL (74-106); POTASSIUM - SERUM 4.1 mmol/L (3.5-5.1); PROTEIN - SERUM 5.2 g/dL (6.4-8.2); SODIUM 137 mmol/L (136-145); UREA NITROGEN 25 mg/dL (7-18); eGFR NON AFRICAN AMERICAN 87 mL/min (90-120)
[2017-08-04 05:10] LABS: ALT (SGPT) 18 U/L (10-68)
[2017-08-04 07:52] VITALS: BP 161/76
[2017-08-04 12:17] VITALS: BP 155/82
[2017-08-04 21:02] VITALS: BP 170/76
[2017-08-05] VITALS (11 sets, daily range): BP systolic 123–175; BP diastolic 67–87
[2017-08-05 06:40] LABS: APTT 29.3 SECONDS (22.8-39.4); INR 1.37 (0.85-1.17); PROTIME 16.4 SECONDS (11.6-15.0)
[2017-08-05 06:45] LABS: ALBUMIN 2.7 g/dL (3.4-5.0); ALKALINE PHOSPHATASE 56 U/L (46-116); ALT (SGPT) 15 U/L (10-68); BILIRUBIN - TOTAL 0.62 mg/dL (0.2-1.3); CALC OSMOLALITY 272 mosm/kg (275-300); CALCIUM 10.9 mg/dL (8.5-10.1); CARBON DIOXIDE 26.2 mmol/L (21.0-32.0); CHLORIDE - SERUM 103 mmol/L (98-107); CREATININE - SERUM 0.6 mg/dL (0.6-1.3); GLUCOSE 99 mg/dL (74-106); POTASSIUM - SERUM 3.8 mmol/L (3.5-5.1); PROTEIN - SERUM 5.5 g/dL (6.4-8.2); SODIUM 135 mmol/L (136-145); UREA NITROGEN 20 mg/dL (7-18); eGFR NON AFRICAN AMERICAN > 90 mL/min (90-120)
[2017-08-05 07:26] LABS: BASOPHILS 0.2 % (0-2); EOSINOPHILS 0.3 % (0-7); HEMATOCRIT 24.9 % (36.0-48.0); HEMOGLOBIN 8.8 g/dL (12-16); IMMATURE GRANULOCYTES 4.2 % (0-5); LYMPHOCYTES 7.1 % (15-50); MCHC 35.3 g/dL (31.0-37.0); MCV 87.7 fL (80.0-100.0); MEAN PLATELET VOLUME 9.9 fL (7.4-10.4); MONOCYTES 10.3 % (2-11); NEUTROPHILS 77.9 % (40-80); PLATELET COUNT 111 10x3/uL (130-400); RBC 2.84 10x6/uL (4.00-5.40); WBC 5.9 10x3/uL (4.8-10.8)
[2017-08-05 16:57] LABS: PROTEIN - BODY FLUID 2.8 G/DL
[2017-08-05 16:58] LABS: MACROPHAGES BF 3 %; MESOTHELIALS BF 5 %; NEUT - BF 16 %
[2017-08-06] VITALS (7 sets, daily range): BP systolic 99–157; BP diastolic 57–77
[2017-08-06 05:01] LABS: BASOPHILS 0.2 % (0-2); EOSINOPHILS 0.2 % (0-7); HEMATOCRIT 24.2 % (36.0-48.0); HEMOGLOBIN 8.4 g/dL (12-16); IMMATURE GRANULOCYTES 2.3 % (0-5); LYMPHOCYTES 3.4 % (15-50); MCH 30.5 pg (26.0-34.0); MCHC 34.7 g/dL (31.0-37.0); MEAN PLATELET VOLUME 9.1 fL (7.4-10.4); MONOCYTES 18.6 % (2-11); NEUTROPHILS 75.3 % (40-80); RBC 2.75 10x6/uL (4.00-5.40); WBC 5.6 10x3/uL (4.8-10.8)
[2017-08-06 05:04] LABS: PLATELET COUNT 81 10x3/uL (130-400)
[2017-08-06 05:29] LABS: ALBUMIN 2.8 g/dL (3.4-5.0); ALKALINE PHOSPHATASE 41 U/L (46-116); CALC OSMOLALITY 273 mosm/kg (275-300); CALCIUM 10.5 mg/dL (8.5-10.1); CARBON DIOXIDE 27.3 mmol/L (21.0-32.0); CHLORIDE - SERUM 102 mmol/L (98-107); CREATININE - SERUM 0.6 mg/dL (0.6-1.3); GLUCOSE 94 mg/dL (74-106); PROTEIN - SERUM 5.3 g/dL (6.4-8.2); SODIUM 136 mmol/L (136-145); UREA NITROGEN 18 mg/dL (7-18); eGFR NON AFRICAN AMERICAN > 90 mL/min (90-120)
[2017-08-06 05:30] LABS: ALT (SGPT) 10 U/L (10-68)
[2017-08-06 19:11] LABS: AFB SPECIMEN PROCESSING Concentration (())
[2017-08-07 04:07] VITALS: BP 133/65
[2017-08-07 07:56] LABS: BASOPHILS 0.2 % (0-2); EOSINOPHILS 0.4 % (0-7); HEMATOCRIT 24.8 % (36.0-48.0); HEMOGLOBIN 8.6 g/dL (12-16); IMMATURE GRANULOCYTES 1.1 % (0-5); LYMPHOCYTES 7.6 % (15-50); MCH 30.5 pg (26.0-34.0); MCHC 34.7 g/dL (31.0-37.0); MCV 87.9 fL (80.0-100.0); MEAN PLATELET VOLUME 10.9 fL (7.4-10.4); MONOCYTES 10.4 % (2-11); NEUTROPHILS 80.3 % (40-80); RBC 2.82 10x6/uL (4.00-5.40); RDW 16.5 % (11.5-14.5); WBC 5.7 10x3/uL (4.8-10.8)
[2017-08-07 08:03] LABS: PLATELET COUNT 62 10x3/uL (130-400)
[2017-08-07 08:06] LABS: ALKALINE PHOSPHATASE 39 U/L (46-116); ALT (SGPT) 9 U/L (10-68); CALC OSMOLALITY 271 mosm/kg (275-300); CALCIUM 10.9 mg/dL (8.5-10.1); CARBON DIOXIDE 27.4 mmol/L (21.0-32.0); CHLORIDE - SERUM 101 mmol/L (98-107); CREATININE - SERUM 0.5 mg/dL (0.6-1.3); GLUCOSE 91 mg/dL (74-106); PROTEIN - SERUM 5.3 g/dL (6.4-8.2); SODIUM 135 mmol/L (136-145); UREA NITROGEN 18 mg/dL (7-18); eGFR NON AFRICAN AMERICAN > 90 mL/min (90-120)
[2017-08-07 08:07] VITALS: BP 106/64
[2017-08-07 18:29] VITALS: BP 130/73
[2017-08-07 21:08] VITALS: BP 142/69
[2017-08-08 01:08] VITALS: BP 136/74
[2017-08-08 04:45] VITALS: BP 131/69
[2017-08-08 07:06] LABS: BASOPHILS 0 % (0-2); EOSINOPHILS 0.2 % (0-7); HEMATOCRIT 23.9 % (36.0-48.0); HEMOGLOBIN 8.1 g/dL (12-16); IMMATURE GRANULOCYTES 0.4 % (0-5); LYMPHOCYTES 6.8 % (15-50); MCH 30.2 pg (26.0-34.0); MCHC 33.9 g/dL (31.0-37.0); MCV 89.2 fL (80.0-100.0); MEAN PLATELET VOLUME 10.1 fL (7.4-10.4); MONOCYTES 8.2 % (2-11); NEUTROPHILS 84.4 % (40-80); PLATELET COUNT 50 10x3/uL (130-400); RBC 2.68 10x6/uL (4.00-5.40); RDW 16.6 % (11.5-14.5); WBC 4.7 10x3/uL (4.8-10.8)
[2017-08-08 07:13] LABS: ALBUMIN 3.2 g/dL (3.4-5.0); ALKALINE PHOSPHATASE 40 U/L (46-116); ALT (SGPT) 7 U/L (10-68); BILIRUBIN - TOTAL 0.79 mg/dL (0.2-1.3); CALC OSMOLALITY 264 mosm/kg (275-300); CALCIUM 10.6 mg/dL (8.5-10.1); CARBON DIOXIDE 27.7 mmol/L (21.0-32.0); CHLORIDE - SERUM 98 mmol/L (98-107); CREATININE - SERUM 0.5 mg/dL (0.6-1.3); GLUCOSE 102 mg/dL (74-106); PROTEIN - SERUM 5.8 g/dL (6.4-8.2); SODIUM 131 mmol/L (136-145); UREA NITROGEN 18 mg/dL (7-18); eGFR NON AFRICAN AMERICAN > 90 mL/min (90-120)
[2017-08-08 08:00] VITALS: BP 118/67
[2017-08-08 12:15] VITALS: BP 137/71
[2017-08-08 16:00] VITALS: BP 104/65
[2017-08-08 20:46] VITALS: BP 123/66
[2017-08-08 22:52] LABS: APPEARANCE CLEAR (CLEAR); BILIRUBIN NEGATIVE (NEGATIVE); COLOR YELLOW (YELLOW); GLUCOSE NEGATIVE (NEGATIVE); KETONE NEGATIVE (NEGATIVE); NITRITE NEGATIVE (NEGATIVE); PROTEIN NEGATIVE (NEGATIVE); UROBILINOGEN NORMAL (NORMAL)
[2017-08-09] VITALS (13 sets, daily range): BP systolic 132–157; BP diastolic 69–96
[2017-08-09 04:21] LABS: BASOPHILS 0 % (0-2); EOSINOPHILS 0.2 % (0-7); HEMATOCRIT 21.7 % (36.0-48.0); IMMATURE GRANULOCYTES 0.5 % (0-5); LYMPHOCYTES 4.3 % (15-50); MCH 30.6 pg (26.0-34.0); MCHC 34.6 g/dL (31.0-37.0); MCV 88.6 fL (80.0-100.0); MEAN PLATELET VOLUME 10.6 fL (7.4-10.4); MONOCYTES 13.1 % (2-11); NEUTROPHILS 81.9 % (40-80); PLATELET COUNT 55 10x3/uL (130-400); RBC 2.45 10x6/uL (4.00-5.40); RDW 16.4 % (11.5-14.5); WBC 4.4 10x3/uL (4.8-10.8)
[2017-08-09 04:30] LABS: HEMOGLOBIN 7.5 g/dL (12-16)
[2017-08-09 04:41] LABS: ALBUMIN 3.4 g/dL (3.4-5.0); ALKALINE PHOSPHATASE 36 U/L (46-116); BILIRUBIN - TOTAL 0.83 mg/dL (0.2-1.3); CALC OSMOLALITY 265 mosm/kg (275-300); CALCIUM 10.5 mg/dL (8.5-10.1); CHLORIDE - SERUM 96 mmol/L (98-107); CREATININE - SERUM 0.5 mg/dL (0.6-1.3); GLUCOSE 93 mg/dL (74-106); POTASSIUM - SERUM 3.8 mmol/L (3.5-5.1); PROTEIN - SERUM 5.9 g/dL (6.4-8.2); SODIUM 132 mmol/L (136-145); UREA NITROGEN 16 mg/dL (7-18); eGFR NON AFRICAN AMERICAN > 90 mL/min (90-120)
[2017-08-09 04:42] LABS: ALT (SGPT) 9 U/L (10-68)
[2017-08-10 04:22] VITALS: BP 146/48
[2017-08-10 05:31] LABS: BASOPHILS 0.2 % (0-2); EOSINOPHILS 0.2 % (0-7); IMMATURE GRANULOCYTES 0.4 % (0-5); LYMPHOCYTES 8.9 % (15-50); MCHC 34.5 g/dL (31.0-37.0); MCV 87.1 fL (80.0-100.0); MEAN PLATELET VOLUME 10.4 fL (7.4-10.4); MONOCYTES 12.2 % (2-11); NEUTROPHILS 78.1 % (40-80); WBC 5.2 10x3/uL (4.8-10.8)
[2017-08-10 05:33] LABS: HEMATOCRIT 32.5 % (36.0-48.0); HEMOGLOBIN 11.2 g/dL (12-16); RBC 3.73 10x6/uL (4.00-5.40)
[2017-08-10 05:34] LABS: PLATELET COUNT 49 10x3/uL (130-400)
[2017-08-10 05:42] LABS: ALBUMIN 3.4 g/dL (3.4-5.0); ALKALINE PHOSPHATASE 49 U/L (46-116); ALT (SGPT) 9 U/L (10-68); CALCIUM 10.1 mg/dL (8.5-10.1); CARBON DIOXIDE 28.7 mmol/L (21.0-32.0); CHLORIDE - SERUM 99 mmol/L (98-107); CREATININE - SERUM 0.4 mg/dL (0.6-1.3); MAGNESIUM - SERUM 1.6 mg/dL (1.8-2.4); PHOSPHOROUS 3.1 mg/dL (2.5-4.9); PROTEIN - SERUM 5.8 g/dL (6.4-8.2); SODIUM 130 mmol/L (136-145); UREA NITROGEN 14 mg/dL (7-18); eGFR NON AFRICAN AMERICAN > 90 mL/min (90-120)
[2017-08-10 05:46] LABS: CALC OSMOLALITY 259 mosm/kg (275-300); GLUCOSE 68 mg/dL (74-106)
[2017-08-10 08:21] LABS: INR 1.02 (0.85-1.17)
[2017-08-10 08:30] VITALS: BP 137/66
[2017-08-10 12:44] VITALS: BP 124/78
[2017-08-10 15:49] VITALS: BP 132/70
[2017-08-10 20:00] VITALS: BP 140/78
[2017-08-11 00:41] VITALS: BP 137/73
[2017-08-11 04:00] VITALS: BP 124/67
[2017-08-11 06:23] LABS: BASOPHILS 0.2 % (0-2); EOSINOPHILS 0.2 % (0-7); HEMATOCRIT 31.3 % (36.0-48.0); HEMOGLOBIN 10.5 g/dL (12-16); IMMATURE GRANULOCYTES 0.2 % (0-5); LYMPHOCYTES 10.6 % (15-50); MCH 29.7 pg (26.0-34.0); MCHC 33.5 g/dL (31.0-37.0); MCV 88.7 fL (80.0-100.0); MEAN PLATELET VOLUME 10.6 fL (7.4-10.4); NEUTROPHILS 72.8 % (40-80); RBC 3.53 10x6/uL (4.00-5.40); RDW 15.7 % (11.5-14.5); WBC 4.4 10x3/uL (4.8-10.8)
[2017-08-11 06:26] LABS: PLATELET COUNT 48 10x3/uL (130-400)
[2017-08-11 07:00] LABS: ALKALINE PHOSPHATASE 54 U/L (46-116); ALT (SGPT) 8 U/L (10-68); CALC OSMOLALITY 264 mosm/kg (275-300); CALCIUM 10.9 mg/dL (8.5-10.1); CARBON DIOXIDE 29.2 mmol/L (21.0-32.0); CHLORIDE - SERUM 96 mmol/L (98-107); CREATININE - SERUM 0.4 mg/dL (0.6-1.3); GLUCOSE 87 mg/dL (74-106); POTASSIUM - SERUM 4.2 mmol/L (3.5-5.1); PROTEIN - SERUM 6.5 g/dL (6.4-8.2); SODIUM 132 mmol/L (136-145); UREA NITROGEN 14 mg/dL (7-18); eGFR NON AFRICAN AMERICAN > 90 mL/min (90-120)
[2017-08-11 07:04] LABS: PLATELET ESTIMATE DECREASED
[2017-08-11 07:08] LABS: ALBUMIN 4.3 g/dL (3.4-5.0)
[2017-08-11 07:41] VITALS: BP 118/66
[2017-08-11 12:18] LABS: FUNGUS STAIN Final report (())
[2017-08-11 12:30] VITALS: BP 124/70
[2017-08-11 15:45] VITALS: BP 128/75
[2017-08-11 20:01] VITALS: BP 128/70
[2017-08-12 04:35] VITALS: BP 132/69
[2017-08-12 05:29] LABS: BASOPHILS 0.2 % (0-2); EOSINOPHILS 0 % (0-7); HEMATOCRIT 32.3 % (36.0-48.0); HEMOGLOBIN 10.9 g/dL (12-16); IMMATURE GRANULOCYTES 0.4 % (0-5); LYMPHOCYTES 12.8 % (15-50); MCH 29.9 pg (26.0-34.0); MCHC 33.7 g/dL (31.0-37.0); MCV 88.7 fL (80.0-100.0); MEAN PLATELET VOLUME 11.2 fL (7.4-10.4); MONOCYTES 17.3 % (2-11); NEUTROPHILS 69.3 % (40-80); RBC 3.64 10x6/uL (4.00-5.40); RDW 15.4 % (11.5-14.5); WBC 4.6 10x3/uL (4.8-10.8)
[2017-08-12 05:38] LABS: PLATELET COUNT 58 10x3/uL (130-400)
[2017-08-12 05:50] LABS: ALBUMIN 3.6 g/dL (3.4-5.0); ALKALINE PHOSPHATASE 59 U/L (46-116); ALT (SGPT) 9 U/L (10-68); CALC OSMOLALITY 259 mosm/kg (275-300); CALCIUM 10.8 mg/dL (8.5-10.1); CARBON DIOXIDE 28.9 mmol/L (21.0-32.0); CHLORIDE - SERUM 95 mmol/L (98-107); CREATININE - SERUM 0.5 mg/dL (0.6-1.3); GLUCOSE 93 mg/dL (74-106); MAGNESIUM - SERUM 1.7 mg/dL (1.8-2.4); PHOSPHOROUS 2.7 mg/dL (2.5-4.9); POTASSIUM - SERUM 4.5 mmol/L (3.5-5.1); SODIUM 129 mmol/L (136-145); UREA NITROGEN 15 mg/dL (7-18); eGFR NON AFRICAN AMERICAN > 90 mL/min (90-120)
[2017-08-12 06:10] LABS: PROTEIN - SERUM 6.2 g/dL (6.4-8.2)
[2017-08-12 08:14] VITALS: BP 116/60
[2017-08-12 13:15] VITALS: BP 135/76
[2017-08-12 16:14] VITALS: BP 132/76
[2017-08-12 20:32] VITALS: BP 127/76
[2017-08-13 04:06] LABS: BASOPHILS 0 % (0-2); EOSINOPHILS 0.3 % (0-7); HEMATOCRIT 30.3 % (36.0-48.0); HEMOGLOBIN 10.2 g/dL (12-16); IMMATURE GRANULOCYTES 0.3 % (0-5); LYMPHOCYTES 14.4 % (15-50); MCH 29.7 pg (26.0-34.0); MCHC 33.7 g/dL (31.0-37.0); MCV 88.3 fL (80.0-100.0); MEAN PLATELET VOLUME 10.9 fL (7.4-10.4); MONOCYTES 15.9 % (2-11); NEUTROPHILS 69.1 % (40-80); PLATELET COUNT 64 10x3/uL (130-400); RBC 3.43 10x6/uL (4.00-5.40); RDW 15.3 % (11.5-14.5); WBC 3.9 10x3/uL (4.8-10.8)
[2017-08-13 04:16] VITALS: BP 125/67
[2017-08-13 04:20] LABS: ALKALINE PHOSPHATASE 75 U/L (46-116); ALT (SGPT) 9 U/L (10-68); CALC OSMOLALITY 264 mosm/kg (275-300); CALCIUM 10.6 mg/dL (8.5-10.1); CHLORIDE - SERUM 95 mmol/L (98-107); CREATININE - SERUM 0.5 mg/dL (0.6-1.3); GLUCOSE 86 mg/dL (74-106); MAGNESIUM - SERUM 1.6 mg/dL (1.8-2.4); POTASSIUM - SERUM 4.3 mmol/L (3.5-5.1); PROTEIN - SERUM 6.5 g/dL (6.4-8.2); SODIUM 132 mmol/L (136-145); UREA NITROGEN 15 mg/dL (7-18); eGFR NON AFRICAN AMERICAN > 90 mL/min (90-120)
[2017-08-13 04:23] LABS: PHOSPHOROUS 3.4 mg/dL (2.5-4.9)
[2017-08-13 08:07] VITALS: BP 120/70
[2017-08-13 12:23] LABS: APTT 31.6 SECONDS (22.8-39.4); INR 1.07 (0.85-1.17); PROTIME 13.5 SECONDS (11.6-15.0)
[2017-08-13 14:35] LABS: BASOPHILS 0.3 % (0-2); EOSINOPHILS 0.5 % (0-7); HEMOGLOBIN 10.5 g/dL (12-16); LYMPHOCYTES 12.5 % (15-50); MCH 30.3 pg (26.0-34.0); MCHC 33.9 g/dL (31.0-37.0); MCV 89.3 fL (80.0-100.0); MEAN PLATELET VOLUME 9.5 fL (7.4-10.4); MONOCYTES 15.8 % (2-11); NEUTROPHILS 70.9 % (40-80); PLATELET COUNT 61 10x3/uL (130-400); RBC 3.47 10x6/uL (4.00-5.40); RDW 15.5 % (11.5-14.5)
[2017-08-13 15:01] LABS: CALC OSMOLALITY 263 mosm/kg (275-300); CALCIUM 10.7 mg/dL (8.5-10.1); CARBON DIOXIDE 28.6 mmol/L (21.0-32.0); CHLORIDE - SERUM 95 mmol/L (98-107); CREATININE - SERUM 0.6 mg/dL (0.6-1.3); POTASSIUM - SERUM 4.4 mmol/L (3.5-5.1); SODIUM 130 mmol/L (136-145); UREA NITROGEN 16 mg/dL (7-18); eGFR NON AFRICAN AMERICAN > 90 mL/min (90-120)
[2017-08-13 15:10] LABS: GLUCOSE 139 mg/dL (74-106)
[2017-08-13 15:30] VITALS: BP 121/75
[2017-08-13 19:51] VITALS: BP 128/67
[2017-08-14 04:11] VITALS: BP 119/66
[2017-08-14 05:10] LABS: CALC OSMOLALITY 266 mosm/kg (275-300); CALCIUM 10.7 mg/dL (8.5-10.1); CARBON DIOXIDE 28.3 mmol/L (21.0-32.0); CHLORIDE - SERUM 95 mmol/L (98-107); CREATININE - SERUM 0.7 mg/dL (0.6-1.3); GLUCOSE 153 mg/dL (74-106); MAGNESIUM - SERUM 1.8 mg/dL (1.8-2.4); PHOSPHOROUS 3.6 mg/dL (2.5-4.9); POTASSIUM - SERUM 4.6 mmol/L (3.5-5.1); SODIUM 131 mmol/L (136-145); UREA NITROGEN 15 mg/dL (7-18); eGFR NON AFRICAN AMERICAN 87 mL/min (90-120)
[2017-08-14 07:53] VITALS: BP 109/62
[2017-08-14 12:28] VITALS: BP 128/77
[2017-08-14 16:00] VITALS: BP 118/60
[2017-08-14 20:55] VITALS: BP 109/54
[2017-08-15 00:47] VITALS: BP 111/60
[2017-08-15 05:04] VITALS: BP 124/64
[2017-08-15 05:24] LABS: CALC OSMOLALITY 265 mosm/kg (275-300); CALCIUM 10.7 mg/dL (8.5-10.1); CARBON DIOXIDE 30.5 mmol/L (21.0-32.0); CHLORIDE - SERUM 97 mmol/L (98-107); CREATININE - SERUM 0.6 mg/dL (0.6-1.3); GLUCOSE 128 mg/dL (74-106); MAGNESIUM - SERUM 1.9 mg/dL (1.8-2.4); PHOSPHOROUS 3.4 mg/dL (2.5-4.9); POTASSIUM - SERUM 4.6 mmol/L (3.5-5.1); SODIUM 131 mmol/L (136-145); UREA NITROGEN 15 mg/dL (7-18); eGFR NON AFRICAN AMERICAN > 90 mL/min (90-120)
[2017-08-15 08:04] VITALS: BP 108/62
[2017-08-15 12:34] VITALS: BP 108/59
[2017-08-15 16:03] VITALS: BP 118/61
[2017-08-15 21:46] VITALS: BP 117/66
[2017-08-16] VITALS (7 sets, daily range): BP systolic 110–134; BP diastolic 54–70
[2017-08-16 04:40] LABS: BASOPHILS 0.3 % (0-2); EOSINOPHILS 1.5 % (0-7); HEMATOCRIT 25.6 % (36.0-48.0); HEMOGLOBIN 8.3 g/dL (12-16); IMMATURE GRANULOCYTES 0.3 % (0-5); LYMPHOCYTES 13.4 % (15-50); MCH 29.2 pg (26.0-34.0); MCHC 32.4 g/dL (31.0-37.0); MCV 90.1 fL (80.0-100.0); MONOCYTES 23.6 % (2-11); NEUTROPHILS 60.9 % (40-80); RBC 2.84 10x6/uL (4.00-5.40); RDW 15.3 % (11.5-14.5); WBC 3.4 10x3/uL (4.8-10.8)
[2017-08-16 04:56] LABS: PLATELET COUNT 91 10x3/uL (130-400)
[2017-08-16 04:57] LABS: CALC OSMOLALITY 267 mosm/kg (275-300); CARBON DIOXIDE 28.7 mmol/L (21.0-32.0); CHLORIDE - SERUM 98 mmol/L (98-107); CREATININE - SERUM 0.6 mg/dL (0.6-1.3); GLUCOSE 138 mg/dL (74-106); PHOSPHOROUS 3.2 mg/dL (2.5-4.9); POTASSIUM - SERUM 4.4 mmol/L (3.5-5.1); SODIUM 132 mmol/L (136-145); UREA NITROGEN 16 mg/dL (7-18); eGFR NON AFRICAN AMERICAN > 90 mL/min (90-120)
[2017-08-17 04:48] VITALS: BP 134/68
[2017-08-17 07:24] LABS: CALC OSMOLALITY 270 mosm/kg (275-300); CALCIUM 11.8 mg/dL (8.5-10.1); CARBON DIOXIDE 29.9 mmol/L (21.0-32.0); CHLORIDE - SERUM 97 mmol/L (98-107); CREATININE - SERUM 0.6 mg/dL (0.6-1.3); GLUCOSE 129 mg/dL (74-106); MAGNESIUM - SERUM 2.1 mg/dL (1.8-2.4); PHOSPHOROUS 3.3 mg/dL (2.5-4.9); POTASSIUM - SERUM 4.8 mmol/L (3.5-5.1); SODIUM 134 mmol/L (136-145); UREA NITROGEN 16 mg/dL (7-18); eGFR NON AFRICAN AMERICAN > 90 mL/min (90-120)
[2017-08-17 07:30] VITALS: BP 103/62
[2017-08-17 12:25] VITALS: BP 133/68
[2017-08-17 16:32] VITALS: BP 143/76
[2017-08-17 20:00] VITALS: BP 135/69
[2017-08-18 03:58] VITALS: BP 117/79
[2017-08-18 05:02] LABS: CALC OSMOLALITY 268 mosm/kg (275-300); CALCIUM 11.8 mg/dL (8.5-10.1); CARBON DIOXIDE 28.1 mmol/L (21.0-32.0); CHLORIDE - SERUM 95 mmol/L (98-107); CREATININE - SERUM 0.7 mg/dL (0.6-1.3); GLUCOSE 175 mg/dL (74-106); MAGNESIUM - SERUM 1.9 mg/dL (1.8-2.4); PHOSPHOROUS 2.9 mg/dL (2.5-4.9); SODIUM 131 mmol/L (136-145); UREA NITROGEN 18 mg/dL (7-18); eGFR NON AFRICAN AMERICAN 87 mL/min (90-120)
[2017-08-18 05:14] LABS: POTASSIUM - SERUM 3.8 mmol/L (3.5-5.1)
[2017-08-18 07:59] VITALS: BP 123/46
[2017-08-18 12:22] VITALS: BP 126/63
[2017-08-18 16:23] VITALS: BP 129/73
[2017-09-06 08:41] LABS: FUNGUS MYCOLOGY CULTURE Final report (())
[2017-09-25 13:11] LABS: ACID FAST CULTURE Negative (()); ACID FAST SMEAR Negative (())
== END 2017-08-18 19:42 | disposition hospice, inpatient (51) | DRG 871 ==
LOC: D.ER 18:58 → D.MS 22:34 → D.M2 22:34 → D.EDHOLD 22:34 → D.M2 22:44 → D.ICU 08-01 12:19 → D.MS 08-01 21:10
PROVIDERS: Emergency Medicine; General Practice; Internal Medicine Nephrology; Internal Medicine Pulmonary Disease; Radiology Vascular & Interventional Radiology; Specialist
PROC: 0W993ZZ Drainage of Right Pleural Cavity, Percutaneous Approach (ICD-10-PCS; principal; 2017-07-30 08:18)
PROC: 0W9930Z Drainage of Right Pleural Cavity with Drainage Device, Percutaneous Approach (ICD-10-PCS; 2017-08-05)
PROC: 0W29X0Z Change Drainage Device in Right Pleural Cavity, External Approach (ICD-10-PCS; 2017-08-10)
DX: A41.9 Sepsis, unspecified organism (principal); E43 Unspecified severe protein-calorie malnutrition; J96.01 Acute respiratory failure with hypoxia; G93.41 Metabolic encephalopathy; K57.20 Diverticulitis of large intestine with perforation and abscess without bleeding; K56.7 Ileus, unspecified; N17.9 Acute kidney failure, unspecified; J90 Pleural effusion, not elsewhere classified; E87.1 Hypo-osmolality and hyponatremia; C34.91 Malignant neoplasm of unspecified part of right bronchus or lung; J98.11 Atelectasis; D62 Acute posthemorrhagic anemia; J94.8 Other specified pleural conditions; C79.51 Secondary malignant neoplasm of bone; B37.0 Candidal stomatitis; J93.9 Pneumothorax, unspecified; Z68.23 Body mass index [BMI] 23.0-23.9, adult; D47.3 Essential (hemorrhagic) thrombocythemia; R13.10 Dysphagia, unspecified; I10 Essential (primary) hypertension; E03.9 Hypothyroidism, unspecified; E87.6 Hypokalemia; Z85.3 Personal history of malignant neoplasm of breast; Z90.13 Acquired absence of bilateral breasts and nipples; R53.81 Other malaise; K66.8 Other specified disorders of peritoneum; Z87.891 Personal history of nicotine dependence; E83.52 Hypercalcemia

== ENCOUNTER 2017-08-18 20:03 | Inpatient (IN) | payer OTHER ==
[~2017-08-18] VITALS: Ht 157.5 cm; Wt 52.7 kg
[~2017-08-18 20:03] MED LIST changes: +ACETAMINOPHEN500 M1 PO; +CYMBALTA20 MG PO; +LOTREL 10/20 CA1 CAP PO; +STERAPRED 5MG 125 MG PO
[2017-08-18 21:46] VITALS: BP 144/78; BMI 21.2
[2017-08-19 00:07] VITALS: BP 144/78
[2017-08-19 08:07] VITALS: BP 101/55
[2017-08-19 19:48] VITALS: BP 124/63
[2017-08-19 20:42] VITALS: BP 124/63
[2017-08-20 08:10] VITALS: BP 118/63
[2017-08-20 20:00] VITALS: BP 119/70
[2017-08-21 08:49] VITALS: BP 129/71
[2017-08-21 20:00] VITALS: BP 132/68
[2017-08-22 04:15] VITALS: BP 123/81
[2017-08-22 09:17] VITALS: BP 126/84
[2017-08-22 22:35] VITALS: BP 118/59
[2017-08-23 09:53] VITALS: BP 127/61
[2017-08-23 12:40] VITALS: BP 90/52
[2017-08-23 20:01] VITALS: BP 131/64
[2017-08-24 08:37] VITALS: BP 148/64
[2017-08-24 19:51] VITALS: BP 147/86
[2017-08-25 08:17] VITALS: BP 127/76
[2017-08-25] MEDS ORDERED: NEURONTIN800 MG PO (13:19)
[2017-08-25] MEDS ORDERED: ROBAXIN500 MG PO (13:19)
[2017-08-25] MEDS ORDERED: BUPRENORPHIN-N1 EACH SL (13:20)
[2017-08-25] MEDS ORDERED: ZYPREXA20 MG PO (13:20)
[2017-08-25 22:35] VITALS: BP 137/73
[2017-08-26 05:48] VITALS: BP 132/63
[2017-08-26 09:15] VITALS: BP 131/74
[2017-08-26 11:59] VITALS: BP 140/76
[2017-08-26 16:25] VITALS: BP 137/73
[2017-08-26 20:06] VITALS: BP 132/77
[2017-08-27 09:20] VITALS: BP 156/88
[2017-08-27 20:42] VITALS: BP 114/65
[2017-08-28 08:30] VITALS: BP 97/53
[2017-11-01 13:58] VITALS: Ht 157.5 cm; Wt 52.7 kg
== END 2017-08-28 21:35 | DRG 951 ==
LOC: D.ICU 20:03 → D.MS 20:19
DX: Z51.5 Encounter for palliative care (principal)